=== PATIENT | female | born 1945 | race Caucasian/White ===

== ENCOUNTER 2022-06-04 09:14 | Emergency (ER) | payer MEDICARE, SELFPAY ==
--- NOTE | ~2022-06-04 | CT_ITS ---
EXAMINATION: CT ABDOMEN AND PELVIS WITHOUT CONTRAST CLINICAL INFORMATION: Renal stone COMPARISON: None TECHNIQUE: Multidetector volumetric imaging was performed from the superior aspect of the liver through the pubic symphysis. Sagittal and coronal reformatted images were obtained on the technologist's workstation. This CT examination was performed using dose optimization techniques as appropriate, variously including the following: *Automated exposure control *Adjustment of mA and/or kV according to patient size (this includes techniques or standardized protocols for targeted exams where dose is matched to indication/reason for exam; i.e. extremities or head) *Use of iterative reconstruction technique DLP: 1054 mGy-cm FINDINGS: LUNG BASES: The visualized lung bases are unremarkable. LIVER, GALLBLADDER, AND BILIARY TREE: Liver is of low attenuation due to hepatic steatosis and enlarged with right lobe attenuation measured 24HU. There are no intrahepatic masses or ductal dilatation. The gallbladder is unremarkable with no evidence of radiopaque gallstones, gallbladder wall thickening, or obvious pericholecystic inflammatory changes. PANCREAS: Unremarkable. SPLEEN: Unremarkable. ADRENAL GLANDS: Unremarkable. KIDNEYS AND URETERS: No evidence of nephrolithiasis or hydroureteronephrosis. Left kidney revealed mildly lobulated contour most likely due to small cortical cyst in the lower pole but no masses or obvious cysts visualized. Right kidney revealed no mass is hydronephrosis or stones and there is mildly lobulated contour. BLADDER: There is nonobstructing conglomerate of stones measured 0.5 cm at left the UVJ GASTROINTESTINAL TRACT: The small and large bowel are unremarkable. The appendix is unremarkable. ABDOMINAL WALL: No significant hernia is appreciated. LYMPH NODES: Normal. VASCULAR: Unremarkable. PELVIC VISCERA: Unremarkable. OSSEOUS STRUCTURES: There are mild degenerative changes in lumbar spine CT/CT abdomen pelvis wo con IMPRESSION: Nonobstructing calculus in the left UVJ. Hepatic steatosis and hepatomegaly Fleischner guidelines were followed.
[2022-06-04 09:42] VITALS: BP 156/85; PULSE 111; RESP 18; O2SAT 97; BMI 44.0
[2022-06-04 09:45] VITALS: TEMP 36.6
[2022-06-04 09:59] LABS: Appearance Urine CLEAR; Color Urine YELLOW; Glucose Urine UA NEG (NEG); Leukocyte Esterase Urine 1+ (NEG); Nitrite Urine NEG (NEG); PH 5.5 (5.0-8.0); UACC Culture Trigger YES; Urine Blood TRACE (NEG); Urine Ketones 5 MG/DL (NEG); Urine Protein NEG (NEG-TRACE)
[2022-06-04 10:33] VITALS: BP 138/70; PULSE 100; RESP 20; O2SAT 97
[2022-06-04 10:45] LABS: Bacteria Urine TRACE /LPF; RBC Urine 0-2 /HPF (0); Squamous Epithelial Cell Urine 3+ /LPF
--- NOTE | 2022-06-04 10:47 | ED_ITS ---
HPI - Female Genitourinary General Chief complaint: Urogenital-Female Stated complaint: uti, burning when urinating Time Seen by Provider: 06/04/22 10:19 Source: patient Mode of arrival: ambulatory Limitations: no limitations History of Present Illness HPI Narrative: This is a 77 years old female presented to the emergency department complaining of dysuria burning during urination she is concerned she may have another urinary tract infection, she just finished a course of antibiotics MD elicited complaint: dysuria Onset (ago): week(s) (2) Severity: moderate Female Urogenital Radiation: Non-Radiating Consistency: constant Vaginal discharge: none Associated symptoms: denies other symptoms Related Data Previous Rx's Medication Instructions Recorded phenazopyridine 100 mg tablet 200 mg PO TID 6 doses #6 tabs 06/04/22 (Pyridium) tamsulosin 0.4 mg capsule (Flomax) 0.4 mg PO BEDTIME #10 caps 06/04/22 Allergies Allergy/AdvReac Type Severity Reaction Status Date / Time Unable to Assess Allergy Unverified 06/04/22 10:44 Review of Systems Review of Systems: Yes all other systems are reviewed and are negative Respiratory: Respiratory: Reports no additional respiratory complaints Gastrointestinal: Gastrointestinal: Reports no additional gastrointestinal complaints Genitourinary: Genitourinary: Reports dysuria PMFSH Social History Social History Advance Directives: Yes Advance Directives Information Provided: No Advance Directives on File: No Physical Exam Vital Signs: Vital Signs: Last Vital Signs Temp 97.9 F 06/04/22 09:45 Pulse 104 H 06/04/22 12:06 Resp 18 06/04/22 12:06 BP 148/86 H 06/04/22 12:06 Pulse Ox 97 06/04/22 12:06 O2 Del Method 06/04/22 12:06 BMI result Body Mass Index 44.0 Const: General: cooperative, healthy appearing and comfortable Nutritional Appearance: well nourished Orientation/consciousness: patient oriented x3 Limitations: no limitations HEENT: Head: Yes normal to inspection General nose exam: Normal external nose present Face and sinus: Yes normal facial exam Mouth: Normal oral and palatal mucosa present Throat: Yes posterior oropharynx normal Neck: Neck: Yes normal visual inspection and Yes full ROM Lymphatic: no lymphadenopathy noted Chest: Chest palpation & inspection: normal inspection of the chest Resp: Effort & Inspection: normal respiratory effort Auscultation: clear to auscultation bilaterally Cardio: Jugular venous distension: no JVD Rate: regular rate Rhythm: regular rhythm GI: Inspection: Yes normal to inspection Palpation (GI): Soft to palpation, not firm, nontender and no guarding Skin: General skin exam: no rashes or lesions noted Lesions: no lesions Rashes: no rashes Neuro: General: patient oriented x3 Cranial nerves: Yes CN's II-XII intact bilaterally Course Reevaluation(s) Reevaluation #1: CT scan of the abdomen and pelvis shows stones in the bladder in the left UVJ without obstruction. We have a clear diagnosis now, patient does have a urologist I will discharge on Flomax, Pyridium for the discomfort I will avoid any narcotic because age MDM - Female Genitourinary Lab Data Result diagrams: 06/04/22 11:13 06/04/22 11:13 Labs: Lab Results 06/04/22 06/04/22 06/04/22 Range/Units 09:53 11:13 11:13 WBC 7.3 (4.8-10.8) X10*3/uL RBC 4.92 (4.20-5.50) X10*6/uL Hgb 12.4 (12.0-16.0) g/dl Hct 39.8 (37.0-47.0) % MCV 80.9 (80.0-98.0) fL MCH 25.2 L (27.0-33.0) pg MCHC 31.2 (31.0-35.0) g/dl RDW 14.6 (11.0-16.0) % Plt Count 284 (160-400) X10*3/uL MPV 9.2 L (9.4-12.3) fL Immature Gran % (Auto) 0.3 (0.0-0.4) % Neut % (Auto) 56.4 (45-73) % Lymph % (Auto) 31.9 (20-40) % [place] % (Auto) 7.8 (2-11) % Eos % (Auto) 2.2 (0-4) % Baso % (Auto) 1.4 (0-2) % Lymph # (Auto) 2.3 (1.2-4.9) X10*3/uL [place] # (Auto) 0.6 (0.1-1.2) X10*3/uL Eos # (Auto) 0.2 (0.0-0.4) X10*3/uL Baso # (Auto) 0.1 (0.0-0.2) X10*3/uL Abs Immat Gran (auto) 0.02 (0.00-0.03) X10*3/uL Absolute Neuts (auto) 4.1 (2.0-8.3) x10*3/uL Absolute Nucleated RBC 0.000 (0.0-0.012) X10*3/uL Nucleated RBC % (auto) 0.0 (0.0-0.2) /100WBC Sodium 140 (135-145) mmol/L Potassium 3.8 (3.3-5.1) mmol/L Chloride 105 (96-108) mmol/L Carbon Dioxide 25 (22-29) mmol/L Anion Gap 14 (12-20) BUN 18 H (9-16) mg/dL Creatinine 0.81 (0.5-1.4) mg/dL Estim Creat Clear Calc 75.7 Estimated GFR > 60 Random Glucose 144 H (60-115) mg/dL Calcium 9.7 (8.4-10.2) mg/dL Total Bilirubin 0.3 (0.0-1.0) mg/dL AST 20 (5-31) U/L ALT 19 (0-31) U/L Alkaline Phosphatase 76 (39-117) U/L Total Protein 7.5 (6.5-8.0) g/dL Albumin 4.6 (3.5-5.0) g/dL Urine Color YELLOW Urine Appearance CLEAR Urine pH 5.5 (5.0-8.0) Ur Specific [place] 1.020 (1.005-1.025) Urine Protein NEG (NEG-TRACE) MG/DL Urine Glucose (UA) NEG (NEG) MG/DL Urine Ketones 5 (NEG) MG/DL Urine Blood TRACE (NEG) Urine Nitrite NEG (NEG) Ur Leukocyte Esterase 1+ H (NEG) Urine RBC 0-2 (0) /HPF Urine WBC 1-4 (0-4) /HPF Ur Squamous Epith Cells 3+ /LPF Urine Bacteria TRACE /LPF Imaging Data CT scan - abdomen: Radiologist's impression: BLADDER: There is nonobstructing conglomerate of stones measured 0.5 cm at left the UVJ? GASTROINTESTINAL TRACT: The small and large bowel are unremarkable. The appendix is unremarkable.? ABDOMINAL WALL: No significant hernia is appreciated.? LYMPH NODES: Normal. VASCULAR: Unremarkable. PELVIC VISCERA: Unremarkable.? OSSEOUS STRUCTURES: There are mild degenerative changes in lumbar spine ? CT/CT abdomen pelvis wo con IMPRESSION: Nonobstructing calculus in the left UVJ. Hepatic steatosis and hepatomegaly? ? Fleischner guidelines were followed. Dictated By: Alison Dupont MD Signed By: <Electronically signed by Alison Dupont MD in [place]> 06/04/22 1147 Discharge Plan Discharge Clinical Impression: Bladder calculi Patient Disposition: Home, Self-Care Instructions: Bladder Stones (ED) Additional Instructions: Follow-up with your primary care physician and urologist, return if you worse. Prescriptions: New tamsulosin [Flomax] 0.4 mg capsule 0.4 mg PO BEDTIME Qty: 10 0RF phenazopyridine [Pyridium] 100 mg tablet 200 mg PO TID Qty: 6 0RF Referrals: Speedy Galan MD [Primary Care Provider] - 2 days
[2022-06-04 11:15] LABS: MANUAL DIFF FLAG NO
[2022-06-04 11:17] LABS: Basophils Absolute Auto 0.1 X10*3/uL (0.0-0.2); Basophils Percent Auto 1.4 % (0-2); Eosinophils Absolute Auto 0.2 X10*3/uL (0.0-0.4); Eosinophils Percent Auto 2.2 % (0-4); Hematocrit 39.8 % (37.0-47.0); Hemoglobin 12.4 g/dl (12.0-16.0); Imm Gran Abs Auto 0.02 X10*3/uL (0.00-0.03); Imm Gran Pct Auto 0.3 % (0.0-0.4); Lymphocytes Absolute Auto 2.3 X10*3/uL (1.2-4.9); Lymphocytes Percent Auto 31.9 % (20-40); Mean Corpuscular HGB Conc 31.2 g/dl (31.0-35.0); Mean Corpuscular Hemoglobin 25.2 pg (27.0-33.0); Mean Corpuscular Volume 80.9 fL (80.0-98.0); Mean Platelet Volume 9.2 fL (9.4-12.3); Monocytes Absolute Auto 0.6 X10*3/uL (0.1-1.2); Monocytes Percent Auto 7.8 % (2-11); Neutrophils Absolute Auto 4.1 x10*3/uL (2.0-8.3); Neutrophils Percent Auto 56.4 % (45-73); Platelet Count 284 X10*3/uL (160-400); Red Blood Count 4.92 X10*6/uL (4.20-5.50); Red Cell Distribution Width 14.6 % (11.0-16.0); White Blood Count 7.3 X10*3/uL (4.8-10.8)
[2022-06-04 11:37] LABS: Alanine Aminotransferase 19 U/L (0-31); Albumin Level 4.6 g/dL (3.5-5.0); Alkaline Phosphatase 76 U/L (39-117); Anion Gap 14 (12-20); Aspartate Amino Transferase 20 U/L (5-31); Bilirubin Total 0.3 mg/dL (0.0-1.0); Blood Urea Nitrogen 18 mg/dL (9-16); Calcium 9.7 mg/dL (8.4-10.2); Carbon Dioxide 25 mmol/L (22-29); Chloride 105 mmol/L (96-108); Creatinine Clr Calc Pharmacy 75.7; Estimated Glomerular Filt Rate > 60; Glucose Random 144 mg/dL (60-115); Potassium 3.8 mmol/L (3.3-5.1); Sodium 140 mmol/L (135-145); Total Protein 7.5 g/dL (6.5-8.0)
[2022-06-04 12:06] VITALS: BP 148/86; PULSE 104; RESP 18; O2SAT 97
== END 2022-06-04 12:38 | disposition home or self-care (01) ==
PROVIDERS: Emergency Provider Emergency Medicine; PCP Internal Medicine
DX: N20.1 Calculus of ureter (principal); R30.0 Dysuria; Z79.899 Other long term (current) drug therapy
CPT/HCPCS: 36415; 74176; 80053; 81001; 81003; 85025; 87086; 99283

== ENCOUNTER 2022-12-25 10:17 | Emergency (ER) | payer MEDICARE, SELFPAY ==
--- NOTE | ~2022-12-25 | XR_ITS ---
EXAMINATION: XR LUMBOSACRAL SPINE CLINICAL INFORMATION: Pain. COMPARISON: None. TECHNIQUE: 3 views of the lumbosacral spine. FINDINGS: Grade 1 anterolisthesis of L4 on L5 measures 4 mm. There is marked facet arthropathy in the lower lumbar spine at L4-5 and L5-S1. Multilevel degenerative disc disease is characterized by loss of vertebral disc height, endplate osteophytes, and endplate sclerosis, most notable at L2-L3 and L5-S1. Minimal right convex curvature in the lumbar spine. Vertebral body heights are normal. No osseous lesions are identified. There is moderate osteoarthritis in the SI joints. More mild osteoarthritis is present in the hips. Calcific atherosclerosis is present in the abdominal aorta and iliac arteries. XR/XR lumbar spine 2-3V IMPRESSION: 1. Marked facet arthropathy in the lower lumbar spine with grade 1 anterolisthesis of L4 on L5. 2. [id number] multilevel degenerative disc disease. 3. 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
[2022-12-25 10:47] VITALS: BP 152/83; PULSE 103; RESP 18; TEMP 36.6; O2SAT 98; BMI 42.3
[2022-12-25 11:23] VITALS: BP 145/95; PULSE 98; RESP 16; TEMP 36.7; O2SAT 97
--- NOTE | 2022-12-25 11:38 | ED.GENADULT ---
HPI - General Adult General Chief complaint: Back Pain/Injury Stated complaint: back pain Time Seen by Provider: 12/25/22 11:20 Source: patient, RN notes reviewed and other Mode of arrival: ambulatory (with walker) Limitations: no limitations History of Present Illness HPI narrative: 77-year-old female with past medical history significant for chronic back pain spinal stenosis who presents for evaluation of back pain. Patient reports worsening back pain over the last 3 days. She denies any specific injury, heavy lifting, twisting or turning or any falls. Her pain is at worst 10/10. Issues across her lower back does not show into her legs. She denies any numbness, tingling, weakness. She has been taking Tylenol at home with some relief of her symptoms Denies any history of spinal surgeries denies any bladder or bowel incontinence Related Data Previous Rx's Medication Instructions Recorded phenazopyridine 100 mg tablet 200 mg PO TID 6 doses #6 tabs 06/04/22 (Pyridium) tamsulosin 0.4 mg capsule (Flomax) 0.4 mg PO BEDTIME #10 caps 06/04/22 baclofen 5 mg tablet 5 mg PO TID PRN ms #15 tabs 12/25/22 lidocaine 5 % topical patch 1 patch topical DAILY #5 ea 12/25/22 (Lidoderm) Allergies Allergy/AdvReac Type Severity Reaction Status Date / Time Unable to Assess Allergy Unverified 06/04/22 10:44 Review of Systems Constitutional: Constitutional: Reports as per HPI, Denies chills and Denies fatigue ENT: Denies neck pain Cardiovascular: Cardiovascular: Denies chest pain and Denies dyspnea Respiratory: Respiratory: Denies cough and Denies dyspnea Gastrointestinal: Gastrointestinal: Denies abdominal pain, Denies constipation and Denies vomiting Genitourinary: Genitourinary: Denies dysuria Musculoskeletal: Musculoskeletal: Reports as per HPI, Reports abnormal gait, Reports back pain, Denies neck pain, Denies numbness, Denies radiating pain into limb, Reports stiffness and Denies tingling Neurologic: Reports abnormal gait, Denies numbness and Denies tingling Endocrine: Endocrine: Denies fatigue [facility] Social History Social History Alcohol intake: never Smoked in Last 30 Days: No Use of substances other than those prescribed or required for medical reasons: No Advance Directives: Yes Advance Directives Information Provided: No Advance Directives on File: No Physical Exam ED Vital Signs: Vital Signs - 24 hr 12/25/22 10:47 12/25/22 11:23 12/25/22 13:03 Temperature 97.9 F 98.0 F 97.2 F Pulse Rate 103 H 98 93 Respiratory Rate 18 16 16 Blood Pressure 152/83 H 145/95 H 148/72 H Pulse Oximetry 98 97 95 Oxygen Delivery Method Room Air Room Air Room Air BMI result Body Mass Index 42.3 Const General: healthy appearing, comfortable, no acute distress, alert and awake Nutritional Appearance: well nourished Orientation/consciousness: patient oriented x3 Eyes Eyelids: Yes eyelids normal Conjunctivae: conjunctivae normal Sclerae: sclerae normal Corneas: corneas normal Pupils: Equal, round and reactive pupils present EOM: EOMs intact bilaterally Resp Effort & Inspection: normal respiratory effort, able to speak in complete sentences, no audible wheezes and not labored Back/Spine/Pelvis Other: No obvious visual deformity, no overlying skin changes or rashes. The patient is tender palpation across the lumbar region with no focal vertebral tenderness. No step-offs or deformities. Negative straight leg raise. Thoracic/Lumbar Spine: No straight leg raise positive Skin General skin exam: no rashes or lesions noted and elasticity normal Lesions: no lesions Rashes: no rashes Neuro General: patient oriented x3 Cranial nerves: Yes Equal, round and reactive pupils present Motor exam (neuro): 5/5 motor strength present throughout Extrem General: Yes full ROM Course Reevaluation(s) Reevaluation #1: Discussed imaging results with the patient. She remains on a reassuring neurologic exam. No one insert for clinical consumption. Will discharge patient with lidocaine patches and baclofen. She will follow up with PCP Time: 13:31 Medical Decision Making Medical Decision Making MDM Narrative: This is a 77-year-old female with past medical history significant for spinal stenosis complaining of acute on chronic back pain. She denies any specific injury to the area. Denies any numbness, tingling, weakness, bladder or bowel incontinence. No fevers or chills. Most likely to be clinically in a/epidural abscess. Most likely musculoskeletal in origin addendum lumbar strain or ulcerations/spinal stenosis. Obtain plain film x-ray of the lumbar spine to evaluate for compression fracture. Differential Diagnosis Differential Diagnoses: The differential diagnosis associated with the presentation includes (Spinal stenosis, lumbar strain, compression fractures, vertebral fracture) Spinal stenosis Radiology Impression Discussion of test interpretation with radiology: I have reviewed the radiologist's reading. Discharge Plan Discharge Clinical Impression: Spinal stenosis Patient Disposition: Home, Self-Care Instructions: Lumbar Spinal Stenosis (ED) Additional Instructions: You may use baclofen up to 3 times daily as needed for muscle spasms. The remaining sleeping, denied drinking alcohol or drive taking a day Apply lidocaine patches to the area once daily. Follow-up with your primary doctor for your spinal stenosis. You may also take Tylenol or ibuprofen for any further discomfort Prescriptions: New lidocaine [Lidoderm] 5 % adhesive patch,medicated 1 patch topical DAILY Qty: 5 0RF Rx Instructions: leave on most painful area for up to 12 hrs baclofen 5 mg tablet 5 mg PO TID PRN (Reason: ms) Qty: 15 0RF No Action tamsulosin [Flomax] 0.4 mg capsule 0.4 mg PO BEDTIME Qty: 10 0RF phenazopyridine [Pyridium] 100 mg tablet 200 mg PO TID Qty: 6 0RF
[2022-12-25 13:03] VITALS: BP 148/72; PULSE 93; RESP 16; TEMP 36.2; O2SAT 95
== END 2022-12-25 14:00 | disposition home or self-care (01) ==
PROVIDERS: Emergency Provider Emergency Medicine; PCP Internal Medicine
DX: M48.061 Spinal stenosis, lumbar region without neurogenic claudication (principal); M54.50 Low back pain, unspecified
CPT/HCPCS: 72100; 99283; 99284

== ENCOUNTER 2022-12-28 10:05 | Emergency (ER) | payer MEDICARE, SELFPAY ==
[2022-12-28 10:09] VITALS: BP 142/73; PULSE 100; RESP 19; TEMP 36.6; O2SAT 98; BMI 43.5
--- NOTE | 2022-12-28 11:24 | ED_ITS ---
HPI - Back Pain/Injury General Chief Complaint: Back Pain/Injury <GEORGETTE Sue Last Filed: 12/28/22 12:39> Stated Complaint: sharp back pain going into hips <GEORGETTE Sue Last Filed: 12/28/22 12:39> Time Seen by Provider: 12/28/22 11:22 <GEORGETTE Sue Last Filed: 12/28/22 12:39> Source: patient <GEORGETTE Sue Last Filed: 12/28/22 12:39> Mode of arrival: ambulatory <GEORGETTE Sue Last Filed: 12/28/22 12:39> History of Present Illness HPI Narrative: 77-year-old female with a past medical history of chronic back pain, spinal stenosis, presenting to the ED complaining of acute on chronic low back pain x5 days. Patient was seen and treated in our ED on Sunday for similar symptoms prescribed Baclofen and Lidoderm patches without relief. Denies known injury, trauma, fall, radiation of pain down lower extremities, numbness, tingling, weakness, urinary incontinence/retention. <GEORGETTE Sue Last Filed: 12/28/22 12:39> MD elicited complaint: back pain <GEORGETTE Sue Last Filed: 12/28/22 12:39> Related Data Home Medications: Previous Rx's Medication Instructions Recorded phenazopyridine 100 mg tablet 200 mg PO TID 6 doses #6 tabs 06/04/22 (Pyridium) tamsulosin 0.4 mg capsule (Flomax) 0.4 mg PO BEDTIME #10 caps 06/04/22 baclofen 5 mg tablet 5 mg PO TID PRN ms #15 tabs 12/25/22 lidocaine 5 % topical patch 1 patch topical DAILY #5 ea 12/25/22 (Lidoderm) acetaminophen 500 mg tablet 500 mg PO Q6H PRN fever or pain 12/28/22 (Tylenol Extra Strength) #14 tabs naproxen 500 mg tablet 500 mg PO BID PRN pain 10 days #20 12/28/22 tabs prednisone 20 mg tablet 40 mg PO DAILY 5 days #10 tabs 12/28/22 <GEORGETTE Sue Last Filed: 12/28/22 12:39> Allergies/Adverse Reactions: Allergies Allergy/AdvReac Type Severity Reaction Status Date / Time iodine Allergy Hives Verified 12/28/22 10:09 tramadol Allergy Numbness Verified 12/28/22 10:09 <GEORGETTE Sue - Last Filed: 12/28/22 12:39> Review of Systems Review of Systems: Constitutional: No Fever, No Chills ENT/Mouth: No Ear Pain, No Nasal Congestion, No sore throat, No Rhinorrhea, No Swallowing Difficulty Cardiovascular: No Chest Pain, No SOB Respiratory: No Cough, No Sputum Gastrointestinal: No Nausea, No Vomiting, No Abdominal pain Genitourinary: No Dysuria,No Hematuria, No Urinary Incontinence/retention,No Flank Pain Musculoskeletal: + joint pain, No Myalgias, No Joint Swelling Skin: No Skin Lesions, No rash Neuro: No Weakness, No Numbness, No Paresthesias <GEORGETTE Sue - Last Filed: 12/28/22 12:39> Yes all other systems are reviewed and are negative <GEORGETTE Sue - Last Filed: 12/28/22 12:39> Constitutional: Constitutional: Reports as per HPI <GEORGETTE Sue - Last Filed: 12/28/22 12:39> Neurologic: Denies Sensory deficit (Neuro) <GEORGETTE Sue - Last Filed: 12/28/22 12:39> [facility] Past Medical History Attestation statement: The following information was validated with the patient. <GEORGETTE Sue - Last Filed: 12/28/22 12:39> Social History Social History: Social History Alcohol intake: never Advance Directives: No <GEORGETTE Sue Last Filed: 12/28/22 12:39> Physical Exam Vital Signs: Vital Signs: Last Vital Signs Temp 98 F 12/28/22 10:09 Pulse 100 12/28/22 10:09 Resp 19 12/28/22 10:09 BP 142/73 H 12/28/22 10:09 Pulse Ox 98 12/28/22 10:09 O2 Del Method 12/28/22 10:09 BMI result Body Mass Index 43.5 <GEORGETTE Sue Last Filed: 12/28/22 12:39> Vital Signs: Last Vital Signs Temp 98 F 12/28/22 10:09 Pulse 100 12/28/22 10:09 Resp 19 12/28/22 10:09 BP 142/73 H 12/28/22 10:09 Pulse Ox 98 12/28/22 10:09 O2 Del Method 12/28/22 10:09 BMI result Body Mass Index 43.5 <Pablo Virgen MD - Last Filed: 01/04/23 16:26> Const: General: cooperative, healthy appearing and no acute distress <GEORGETTE Sue - Last Filed: 12/28/22 12:39> Orientation/consciousness: patient oriented x3 <GEORGETTE Sue - Last Filed: 12/28/22 12:39> Limitations: no limitations <GEORGETTE Sue - Last Filed: 12/28/22 12:39> HEENT: Head: Yes normal to inspection and Yes atraumatic <GEORGETTE Sue - Last Filed: 12/28/22 12:39> Ears: hearing grossly normal bilaterally <GEORGETTE Sue - Last Filed: 12/28/22 12:39> General nose exam: Normal external nose present <GEORGETTE Sue - Last Filed: 12/28/22 12:39> Face and sinus: Yes normal facial exam <GEORGETTE Sue - Last Filed: 12/28/22 12:39> Eyes: General: appearance normal, both eyes and all related structures <GEORGETTE Sue - Last Filed: 12/28/22 12:39> EOM: EOMs intact bilaterally <GEORGETTE Sue - Last Filed: 12/28/22 12:39> Neck: Other: No midline cervical spinous tenderness <GEORGETTE Sue - Last Filed: 12/28/22 12:39> Neck: Yes normal visual inspection and Yes no meningeal signs <GEORGETTE Sue - Last Filed: 12/28/22 12:39> Resp: Effort & Inspection: normal respiratory effort and no respiratory distress <GEORGETTE Sue - Last Filed: 12/28/22 12:39> Cardio: Rate: regular rate <Rachel Jiménez PA - Last Filed: 12/28/22 12:39> GI: Inspection: Yes normal to inspection <Rachel Jiménez PA - Last Filed: 12/28/22 12:39> Palpation (GI): Soft to palpation, nontender, no guarding and not rigid <Rachel Jiménez PA - Last Filed: 12/28/22 12:39> : General: Yes no CVA tenderness <Rachel Jiménez PA - Last Filed: 12/28/22 12:39> Back/Spine/Pelvis: Other: No midline thoracic/lumbar spinous tenderness/step-off or deformity. Pain not reproducible on exam <Rachel Jiménez PA - Last Filed: 12/28/22 12:39> Back: no CVA tenderness <Rachel Jiménez PA - Last Filed: 12/28/22 12:39> Skin: Rashes: no rashes <Rachel Jiménez PA - Last Filed: 12/28/22 12:39> Wounds: no wounds <Rachel Jiménez PA - Last Filed: 12/28/22 12:39> Neuro: Other: Strength intact throughout. No saddle anesthesia. Sensation intact to light touch. Neurovascular intact distally. Ambulating with steady gait <Rachel Jiménez PA - Last Filed: 12/28/22 12:39> General: patient oriented x3, gait normal, tone normal, moves all extremities, no meningeal signs and no focal motor deficits <Rachel Jiménez PA - Last Filed: 12/28/22 12:39> Gait exam (Neuro): Normal gait present <Rachel Jiménez PA - Last Filed: 12/28/22 12:39> Motor exam (neuro): 5/5 motor strength present throughout <Rachel Jiménez PA - Last Filed: 12/28/22 12:39> Sensory Exam: No Sensory deficit (Neuro) <Rachel Jiménez PA - Last Filed: 12/28/22 12:39> Extrem: General: Yes normal to inspection <Rachel Jiménez PA - Last Filed: 12/28/22 12:39> Course Course Course Narrative: Patient given IM Toradol and p.o. Valium in the ED. Ambulating with steady gait, sitting in chair in room, reports symptomatic improvement Results discussed with patient including worrisome signs and symptoms and strict return precautions, and when to return to the emergency department. They verbalized understanding and feel safe for discharge at this time. <GEORGETTE Sue - Last Filed: 12/28/22 12:39> Medications Administered Discontinued Medications Generic Name Dose Route Start Last Admin Trade Name Freq PRN Reason Stop Dose Admin Diazepam 5 mg 12/28/22 11:44 12/28/22 12:02 Diazepam 2 Mg Tablet PO 12/28/22 11:45 5 mg ONCE ONE Administration Ketorolac Tromethamine 30 mg 12/28/22 11:44 12/28/22 12:02 Ketorolac Tromethamine 30 Mg/Ml Vial IM 12/28/22 11:45 30 mg ONCE ONE Administration <GEORGETTE Sue - Last Filed: 12/28/22 12:39> Medications Administered Discontinued Medications Generic Name Dose Route Start Last Admin Trade Name Freq PRN Reason Stop Dose Admin Diazepam 5 mg 12/28/22 11:44 12/28/22 12:02 Diazepam 2 Mg Tablet PO 12/28/22 11:45 5 mg ONCE ONE Administration Ketorolac Tromethamine 30 mg 12/28/22 11:44 12/28/22 12:02 Ketorolac Tromethamine 30 Mg/Ml Vial IM 12/28/22 11:45 30 mg ONCE ONE Administration <Pablo Virgen MD - Last Filed: 01/04/23 16:26> Medical Decision Making Medical Decision Making MDM Narrative: 77-year-old female with a past medical history of chronic back pain, s christian stenosis, presenting to the ED complaining of acute on chronic low back pain x5 days. On exam vital signs stable, NAD, nontoxic appearing, no midline spinous tenderness throughout or red flag symptoms, ambulating in the ED with steady gait. Pain not reproducible on exam. Concern for acute on chronic back pain/osteoarthritis. Low suspicion for cauda equina, cord compression, fracture, epidural abscess Plan: IM Toradol, p.o. Valium, reassess X-rays reviewed from 12/25/2022 which showed arthropathy and degenerative disc disease/osteoarthritis Please refer to course for remaining clinical decision making, interpretation of labs/imaging results, and discussions with consultants and/or family members. <GEORGETTE Sue - Last Filed: 12/28/22 12:39> Differential Diagnosis Differential Diagnoses: The differential diagnosis associated with the presentation includes <GEORGETTE Sue - Last Filed: 12/28/22 12:39> as above <GEORGETTE Sue - Last Filed: 12/28/22 12:39> Radiology Impression Discussion of test interpretation with radiology: I have reviewed the radiologist's reading. <GEORGETTE Sue - Last Filed: 12/28/22 12:39> External Record Review Prior ED record <GEORGETTE Sue - Last Filed: 12/28/22 12:39> Prescription Management I considered prescription management with: Pain Medication <GEORGETTE Sue - Last Filed: 12/28/22 12:39> Attestation Attending Attestation: I reviewed CREDIT VERIFICATION CLERK/PA/Resident note, assessment and plan. I agree with the documentation, assessment and plan unless otherwise stated. <Pablo Virgen MD - Last Filed: 01/04/23 16:26> Discharge Plan Discharge Clinical Impression: Chronic back pain <GEORGETTE Sue - Last Filed: 12/28/22 12:39> Patient Disposition: Home, Self-Care <GEORGETTE Sue - Last Filed: 12/28/22 12:39> Instructions: Chronic Back Pain (DC) <GEORGETTE Sue - Last Filed: 12/28/22 12:39> Additional Instructions: Your pain is likely musculoskeletal Continue taking previously prescribed Baclofen which is a muscle relaxer, take at night as it makes you drowsy, do not drive, drink alcohol, or operate machinery while taking it Naproxen as an anti-inflammatory / pain medication, take with food Continue taking previously prescribed Lidoderm patches are numbing patches, apply to painful area In addition take Tylenol at home Prednisone is a steroid, take daily as prescribed for the next 5 days If symptoms persist or worsen, pain becomes unbearable, you developed urinary retention or incontinence, or weakness return to the ED Please follow-up with your doctor <GEORGETTE Sue - Last Filed: 12/28/22 12:39> Prescriptions: New acetaminophen [Tylenol Extra Strength] 500 mg tablet 500 mg PO Q6H PRN (Reason: fever or pain) Qty: 14 0RF naproxen 500 mg tablet 500 mg PO BID PRN (Reason: pain) 10 Days Qty: 20 0RF prednisone 20 mg tablet 40 mg PO DAILY 5 Days Qty: 10 0RF No Action tamsulosin [Flomax] 0.4 mg capsule 0.4 mg PO BEDTIME Qty: 10 0RF phenazopyridine [Pyridium] 100 mg tablet 200 mg PO TID Qty: 6 0RF lidocaine [Lidoderm] 5 % adhesive patch,medicated 1 patch topical DAILY Qty: 5 0RF Rx Instructions: leave on most painful area for up to 12 hrs baclofen 5 mg tablet 5 mg PO TID PRN (Reason: ms) Qty: 15 0RF <GEORGETTE Sue - Last Filed: 12/28/22 12:39> Referrals: Speedy Galan MD [Primary Care Provider] - 3 days <GEORGETTE Sue - Last Filed: 12/28/22 12:39> Interventions: ED Discharge Assessment Last Done: 12/28/22 12:43 <GEORGETTE Sue - Last Filed: 12/28/22 12:39> Discharge Date/Time: 12/28/22 12:45 <GEORGETTE Sue - Last Filed: 12/28/22 12:39>
[2022-12-28] MEDS: diazePAM 2 MG TABLET 5 MG PO (12:02)
[2022-12-28] MEDS: Ketorolac Tromethamine 30 MG/ML VIAL IM (12:02)
--- NOTE | 2022-12-28 12:44 | PC.NURSE ---
pt medicated per JAN- immediately following med administration, pt was able to get oob under own power and walk with her cane with steady pace and gait to bathroom.
== END 2022-12-28 12:45 | disposition home or self-care (01) ==
PROVIDERS: Emergency Provider Emergency Medicine; PCP Internal Medicine
DX: M54.50 Low back pain, unspecified (principal); Z79.899 Other long term (current) drug therapy
CPT/HCPCS: 96372; 99283; 99284; J1885

== ENCOUNTER → 2023-02-19 09:45 | Outpatient (BNVA) | payer MEDICARE, SELFPAY | PROVIDERS: PCP Internal Medicine; Visit Provider Anesthesiology | DX: M47.816 Spondylosis without myelopathy or radiculopathy, lumbar region (principal); M51.36 Other intervertebral disc degeneration, lumbar region; M43.16 Spondylolisthesis, lumbar region; G89.4 Chronic pain syndrome | CPT/HCPCS: 99202 ==

== ENCOUNTER 2023-04-17 05:47 | Outpatient (REF) | payer MEDICARE, SELFPAY ==
--- NOTE | ~2023-04-17 | FL_ITS ---
EXAMINATION: XR FLUOROSCOPY WITH IMAGES CLINICAL INFORMATION: Chronic pain syndrome. COMPARISON: None available. TECHNIQUE: Fluoroscopy Supervised By: Dr. Becerril. Fluoroscopy Time: 0.5 min. Cumulative Dose: 13.8 mGy. DAP: 0.239 Gycm2. Images: 6. FINDINGS: Images demonstrate needle placement and contrast injection adjacent to the bilateral lateral L3, L4 and L5 vertebral bodies. FL/FL guidance in treatment room IMPRESSION: Fluoroscopy guidance for pain management procedure.
== END 2023-04-17 05:48 | disposition home or self-care (01) ==
LOC: CF 05:47
PROVIDERS: Visit Provider Anesthesiology
DX: M47.816 Spondylosis without myelopathy or radiculopathy, lumbar region (principal); M51.36 Other intervertebral disc degeneration, lumbar region; G89.4 Chronic pain syndrome
CPT/HCPCS: 64493; 64494; J2795; Q9967

== ENCOUNTER → 2023-04-19 08:20 | Outpatient (BNVA) | payer MEDICARE, SELFPAY | PROVIDERS: PCP Internal Medicine; Visit Provider Anesthesiology | DX: M47.816 Spondylosis without myelopathy or radiculopathy, lumbar region (principal); M51.36 Other intervertebral disc degeneration, lumbar region; M43.16 Spondylolisthesis, lumbar region; G89.4 Chronic pain syndrome | CPT/HCPCS: 99212 ==

== ENCOUNTER 2023-06-27 09:18 | Outpatient (AMB) | payer MEDICARE, SELFPAY ==
--- NOTE | 2023-06-27 09:28 | AM.OFFWIN_ITS ---
Intake Vital Signs 06/27/23 09:36 Weight 284 lb BP 128/72 Blood Pressure Location Rt brachial Position Sitting Pulse 111 H Pulse Source Pulse Oximeter Pulse Oximetry (%) 97 Oxygen Delivery Method Room Air Intake Visit Reasons: EP, Dizziness, weak Intake Note: Patient here because for the past couple of days she has been feeling dizzy, fatigued, feels weak. states she just feels off . Patient Tobacco Use Status: Former Tobacco user Allergies iodine Allergy (Verified 06/27/23 10:12) Hives tramadol Allergy (Verified 06/27/23 10:12) Numbness Medication List - Last Reconciled 06/27/23 by Jaden Meyer MD acetaminophen (Tylenol Extra Strength) 500 mg PO Q6H PRN estradiol 0.01%(0.1mg/gram) 1 g vaginal 3XW fluticasone propionate 50 mcg/actuation sprays intranasal gabapentin 300 mg PO DAILY levothyroxine 137 mcg PO DAILY metformin ER 1,000 mg PO BID metoprolol succinate ER 25 mg PO DAILY naproxen 500 mg PO BID PRN 10 days omeprazole 20 mg PO DAILY phenazopyridine (Pyridium) 200 mg (2 x 100 mg) PO TID 6 doses prednisone 40 mg (2 x 20 mg) PO DAILY 5 days rosuvastatin 40 mg PO DAILY tamsulosin (Flomax) 0.4 mg PO BEDTIME valsartan-hydrochlorothiazide 160-25 mg 1 tab PO DAILY Do you need a note to return to daycare/school/sports/work: No HPI EP, Dizziness, weak HPI Details 78-year-old female presents to the office for a sick visit. Patient is not been feeling well for the past few days. Reports symptoms of increased frequency of urination and feeling tired. She is also stressed as her has been hospitalized a few times in the last week. No nausea or vomiting. [facility] Social History Alcohol intake: never Patient Tobacco Use Status: Former Tobacco user Physical Exam Vital Signs: Last Vital Signs Pulse 111 H 06/27/23 09:36 BP 128/72 06/27/23 09:36 Pulse Ox 97 06/27/23 09:36 Oxygen Delivery Method Room Air 06/27/23 09:36 Const General: cooperative and healthy appearing Nutritional Appearance: well nourished Orientation/consciousness: patient oriented x3 Limitations: no limitations HEENT Head: Yes normal to inspection Eyes General: appearance normal, both eyes and all related structures Neck Neck: Yes normal visual inspection Chest Chest palpation & inspection: normal palpation of entire chest wall Resp Effort & Inspection: normal respiratory effort Neuro General: patient oriented x3 Results AMB Urinalysis, Automated UA Leukoctes 125 Reginald/uL Last Edit by Lisa Hill, ASHLYN on 06/27/23 10:09 UA Nitrite Positive Last Edit by Lisa Hill, ULTRASOUND SPECIALIST on 06/27/23 10:09 UA Urobilinogen 0.2 mg/dL Last Edit by Lisa Hill, ULTRASOUND SPECIALIST on 06/27/23 10:09 UA Protein 15 mg/dL Last Edit by Lisa Hill, ULTRASOUND SPECIALIST on 06/27/23 10:09 UA pH 6.0 Last Edit by Lisa Hill, ULTRASOUND SPECIALIST on 06/27/23 10:09 UA Blood 10 Williams/uL Last Edit by Lisa Hill, ULTRASOUND SPECIALIST on 06/27/23 10:09 UA Specific [place] 1 Last Edit by Lisa Hill, ULTRASOUND SPECIALIST on 06/27/23 10:09 UA Ketone Negative Last Edit by Lisa Hill, ULTRASOUND SPECIALIST on 06/27/23 10:09 UA Bilirubin 1 mg/dL Last Edit by Lisa Hill, ULTRASOUND SPECIALIST on 06/27/23 10:09 UA Glucose 0 mg/dL Last Edit by Lisa Hill, ULTRASOUND SPECIALIST on 06/27/23 10:09 Results Reviewed Results Reviewed: Laboratory Last Values Urine pH (Auto) 6.0 06/27/23 10:08 Specific [place] (Auto) 1 06/27/23 10:08 Urine Protein (Auto) 15 mg/dL 06/27/23 10:08 Glucose (UA)(Auto) 0 mg/dL 06/27/23 10:08 Urine Ketones (Auto) Negative 06/27/23 10:08 Urine Blood (Auto) 10 Williams/uL 06/27/23 10:08 Urine Nitrite (Auto) Positive 06/27/23 10:08 Urine Bilirubin (Auto) 1 mg/dL 06/27/23 10:08 Urine Urobilinogen (Auto) 0.2 mg/dL 06/27/23 10:08 Leukocyte Esterase (Auto) 125 Reginald/uL 06/27/23 10:08 Assessment & Plan Assessment & Plan (1) Urinary tract infection: Code(s): N39.0 - Urinary tract infection, site not specified Plan: Urinalysis positive for infection. Antibiotics called in. Increase fluid intake. If symptoms not better to follow-up here. Orders: Orders AMB Urinalysis Automated Today Z13.9 - Encounter for screening, unspecified Coding Level of Care Code Est Pt Level 3 (29308) Diagnoses Urinary tract infection N39.0
[2023-06-27 09:36] VITALS: BP 128/72; PULSE 111; O2SAT 97
== END 2023-06-27 10:52 | disposition home or self-care (01) ==
PROVIDERS: PCP Internal Medicine; Visit Provider Internal Medicine
DX: N39.0 Urinary tract infection, site not specified (principal); Z13.9 Encounter for screening, unspecified
CPT/HCPCS: 81003; 99213

== ENCOUNTER 2024-05-12 12:07 | Emergency (ER) | payer MEDICARE, SELFPAY ==
--- NOTE | ~2024-05-12 | XR_ITS ---
EXAMINATION: XR CHEST CLINICAL INFORMATION: Chest pain with dizziness COMPARISON: None available. TECHNIQUE: 2 views of the chest were obtained. FINDINGS: No significant abnormality is noted involving the heart, lungs, mediastinum, bony thorax or soft tissues. XR/XR chest 2V IMPRESSION: Unremarkable examination.
--- NOTE | 2024-05-12 12:21 | ECG_ITS ---
Test Reason : CHEST TIGHTNESS Blood Pressure : / mmHG Vent. Rate : 114 BPM Atrial Rate : 114 BPM P-R Int : 174 ms QRS Dur : 086 ms QT Int : 350 ms P-R-T Axes : 054 -16 044 degrees QTc Int : 482 ms Sinus tachycardia cannot exclude old Inferior infarct , age undetermined Abnormal ECG No previous ECGs available Referred By: Generic ED Physician Electronically Signed By:GISELL GUTIERREZ
--- NOTE | 2024-05-12 12:25 | ED_ITS ---
HPI - General Adult General Chief complaint: Dizziness Stated complaint: CHEST TIGHTNESS FROM PCP OFFICE PER EMS Time Seen by Provider: 05/12/24 12:24 Source: patient Mode of arrival: ambulatory Limitations: no limitations History of Present Illness HPI narrative: This is an 79-year-old woman with a past medical history of chronic back pain, spinal stenosis, bladder calculi, HTN, HLD, NIDDM, hypothyroidism who is BIBEMS for evaluation. Patient states she went to see her primary care doctor for her yearly check up. She states yesterday she was feeling well and that is was a normal day for her. She states waking up this morning and felt dizzy when she got up. She states no associated syncope. She states she also was sweaty . She states no recent fevers or chills. She states this sensation passed. She states also feeling achey in her chest and shoulders. She states no new neck or back pain. She states no vision changes or speech changes. She states no extremity weakness. She states no dyspnea or palpitations. She states no abdominal pain, nausea or vomiting. She states she previously had a urinary tract infection and states she does not feel like she has one becuase that has previously given her lower abdominal discomfort and dysuria. She states no dysuria, urinary frequency/urgency or flank pain. Related Data Home Medications ?Medication ?Instructions ?Recorded ?Confirmed estradiol 0.01% (0.1 mg/gram) 1 g vaginal 3XW 02/19/23 vaginal cream fluticasone propionate 50 spray intranasal 02/19/23 mcg/actuation nasal spray,suspension gabapentin 300 mg capsule 300 mg PO DAILY 02/19/23 levothyroxine 137 mcg tablet 137 mcg PO DAILY 02/19/23 metformin 500 mg tablet,extended 1,000 mg PO BID 02/19/23 release 24 hr metoprolol succinate 25 mg 25 mg PO DAILY 02/19/23 tablet,extended release 24 hr omeprazole 20 mg capsule,delayed 20 mg PO DAILY 02/19/23 release rosuvastatin 40 mg tablet 40 mg PO DAILY 02/19/23 valsartan 160 1 tab PO DAILY 02/19/23 mg-hydrochlorothiazide 25 mg tablet Previous Rx's ?Medication ?Instructions ?Recorded phenazopyridine 100 mg tablet 200 mg (2 x 100 mg) PO TID 6 doses 06/04/22 (Pyridium) #6 tabs tamsulosin 0.4 mg capsule (Flomax) 0.4 mg PO BEDTIME #10 caps 06/04/22 acetaminophen 500 mg tablet 500 mg PO Q6H PRN fever or pain 12/28/22 (Tylenol Extra Strength) #14 tabs naproxen 500 mg tablet 500 mg PO BID PRN pain 10 days #20 12/28/22 tabs prednisone 20 mg tablet 40 mg (2 x 20 mg) PO DAILY 5 days 12/28/22 #10 tabs phenazopyridine 200 mg tablet 200 mg PO TID 3 days #9 tabs 06/27/23 (Pyridium) sulfamethoxazole 800 1 tab PO BID 5 days #10 tabs 06/27/23 mg-trimethoprim 160 mg tablet (Bactrim DS) Allergies Allergy/AdvReac Type Severity Reaction Status Date / Time iodine Allergy Hives Verified 05/12/24 12:58 tramadol Allergy Numbness Verified 05/12/24 12:58 Review of Systems 2 Review of Systems: ROS as per [facility] Social History Social History Alcohol intake: never Patient Tobacco Use Status: Former Tobacco user Advance Directives: No Advance Directives Information Provided: Yes Do you have a plan to hurt others: No Plan Physical Exam ED Vital Signs: Vital Signs - 24 hr 05/12/24 12:30 05/12/24 13:06 05/12/24 13:07 Temperature 98.1 F Pulse Rate 110 H 107 H 117 H Respiratory Rate 22 H Blood Pressure 149/78 H 139/71 119/71 Pulse Oximetry 96 Oxygen Delivery Method Room Air 05/12/24 13:09 05/12/24 16:18 Temperature 97.9 F Pulse Rate 120 H 97 Respiratory Rate 16 Blood Pressure 113/66 141/77 H Pulse Oximetry 98 Oxygen Delivery Method Room Air BMI result Body Mass Index 44.8 Gen: NAD, AOx3 HEENT: NCAT, EOMI, normal conjunctiva, tacky oral mucosa CV: RRR, 2+ bilateral radial and DP/PT pulses Pulm: CTAB, no increased work of breathing GI: Soft, NTND, no rebound, guarding or rigidity MSK: No bilateral calf tenderness/edema/erythema Neuro: Grossly non focal, no nystagmus, ambulates independently Medications Administered Discontinued Medications Generic Name Dose Route Start Last Admin Trade Name Freq PRN Reason Stop Dose Admin Lactated Ringer's 1,000 mls @ 999 mls/hr 05/12/24 12:51 05/12/24 14:37 Lr IV 05/12/24 13:51 999 mls/hr .Q1H1M ONE Administration Medical Decision Making Medical Decision Making [facility] Narrative: Differential diagnosis includes, but is not limited to orthostasis, benign positional paroxysmal vertigo, dehydration, acute kidney injury, electrolyte derangement, acute coronary syndrome, viral syndrome. Patient is afebrile and hemodynamically stable on room air. She is tachycardic on arrival though this resolves prior to discharge. Exam is benign and reassuring. Patient's orthostatic vital signs are obtained and are positive with systolic blood pressure decrease from 139 mmHg to 119 mmHg, which is most likely etiology of her symptoms. I reviewed and interpreted labs, which are noncontributory. I reviewed and interpreted EKG, which is unremarkable for any acute findings. I reviewed and interpreted the patient's blood work, which are unremarkable for any acute findings. There is evidence of mild anemia with hemoglobin 11.5 (previous 12.4), mildly elevated BUN of 24 with no evidence of acute kidney injury given that creatinine is not increased greater than equal to 0.3 mg/dL since previous (1.01 today and previously 0.81), and minimally elevated calcium of 10.3 when compared to the upper limit of normal reference range 10.2. Troponin is negative. I reviewed and interpreted the patient's chest x-ray, which is unremarkable for any acute findings. Patient tests negative for COVID-19, Influenza and RSV. On reexamination, I discussed her reassuring blood work and EKG. She states she deve;oped symptoms of lightheadedness once again when she was taken down for her x-rays. I explained the significant of her orthostatic vital signs and plan for IV fluids. Bedside RN present at this time initiating 1L IV LR. On re-examination, patient is well-appearing and in no acute distress. ?Patient states symptoms have resolved. She ambulates independently.?I suspect patient's symptoms are most likely secondary to orthostasis given her history, exam and orthostatic vitals. There is no indication for further emergent evaluation in this otherwise well-appearing patient as above. ?Patient is provided written and verbal instructions, educational materials, recommendations for outpatient follow-up, strict return precautions and teach back is performed. ?Patient states understanding and agreement with plan of care. ?Patient is discharged home in stable and improved condition. Admission/Observation Consideration of admission/observation: Escalation of care including admission/observation considered Lab Data MDM Lab Attestation statement: I reviewed the patient's lab results. 05/12/24 13:12 05/12/24 13:12 Labs: Lab Results 05/12/24 05/12/24 Range/Units 13:12 13:27 WBC 6.5 (4.8-10.8) X10*3/uL RBC 4.80 (4.20-5.50) X10*6/uL Hgb 11.5 L (12.0-16.0) g/dl Hct 37.7 (37.0-47.0) % MCV 78.5 L (80.0-98.0) fL MCH 24.0 L (27.0-33.0) pg MCHC 30.5 L (31.0-35.0) g/dl RDW 16.7 H (11.0-16.0) % Plt Count 278 (160-400) X10*3/uL MPV 9.7 (9.4-12.3) fL Immature Gran % (Auto) 0.2 (0.0-0.4) % Neut % (Auto) 53.3 (45-73) % Lymph % (Auto) 33.8 (20-40) % [place] % (Auto) 9.0 (2-11) % Eos % (Auto) 2.3 (0-4) % Baso % (Auto) 1.4 (0-2) % Lymph # (Auto) 2.2 (1.2-4.9) X10*3/uL [place] # (Auto) 0.6 (0.1-1.2) X10*3/uL Eos # (Auto) 0.2 (0.0-0.4) X10*3/uL Baso # (Auto) 0.1 (0.0-0.2) X10*3/uL Abs Immat Gran (auto) 0.01 (0.00-0.03) X10*3/uL Absolute Neuts (auto) 3.5 (2.0-8.3) x10*3/uL Absolute Nucleated RBC 0.000 (0.0-0.012) X10*3/uL Nucleated RBC % (auto) 0.0 (0.0-0.2) /100WBC Sodium 145 (135-145) mmol/L Potassium 3.9 (3.3-5.1) mmol/L Chloride 105 (96-108) mmol/L Carbon Dioxide 28 (22-29) mmol/L Anion Gap 16 (12-20) BUN 24 H (9-16) mg/dL Creatinine 1.01 (0.5-1.4) mg/dL Estim Creat Clear Calc 59.2 Estimated GFR 53 POC Glucose 113 (60-115) mg/dL Random Glucose 108 (60-115) mg/dL Calcium 10.3 H D (8.4-10.2) mg/dL Troponin I High Sens < 2.7 (<3.5-17.0) ng/L Influenza Type A (PCR) NEGATIVE (Negative) Influenza Type B (PCR) NEGATIVE (Negative) RSV RNA Qual (PCR) NEGATIVE (Negative) SARS-CoV-2 RNA (RT-PCR) NEGATIVE (Negative) Independent Interpretation I performed an independent interpretation of an: EKG and Plain X-Ray Interpretation: EKG shows sinus tachycardia at 114 beats per minute, AK 174, QRS 86, QTC 482, no STEMI Chest x-ray is unremarkable for any pneumothorax, widened mediastinum or focal consolidation Radiology Impression Discussion of test interpretation with radiology: I have reviewed the radiologist's reading. Radiologist Impression: IMPRESSION: Unremarkable examination. Dictated By: Ulysses Purvis MD Signed By: <Electronically signed by Ulysses Purvis MD in OV> 05/12/24 1539 Discharge Plan Discharge Clinical Impression: Orthostasis Patient Disposition: Home, Self-Care Instructions: Dizziness (ED) Additional Instructions: You were seen and evaluated in the emergency room. Your vital signs were normal and you did not have fever. You were noted to have orthostatic vital signs, which means your blood pressure decreases when you change position (such as from laying down to sitting/standing or sitting to standing). Please discuss this with your primary care doctor. You were treated with IV fluids. Please take care to change position slowly and pause in between position changes (especially if you feel lightheaded). Your blood work, EKG and chest x-ray were reassuring though you were noted to have mild anemia with a hemoglobin of 11.5. Please discuss this with your primary care doctor. Please follow-up with your primary care doctor in the next 5-7 days to discuss your recent emergency room visit. Please return to the emergency room if you develop any worsening symptoms including, but not limited to lightheadedness, falls/injuries, loss of consciousness, chest pain or difficulty breathing. ? Prescriptions: No Action tamsulosin [Flomax] 0.4 mg capsule 0.4 mg PO BEDTIME Qty: 10 0RF phenazopyridine [Pyridium] 100 mg tablet 200 mg PO TID Qty: 6 0RF acetaminophen [Tylenol Extra Strength] 500 mg tablet 500 mg PO Q6H PRN (Reason: fever or pain) Qty: 14 0RF naproxen 500 mg tablet 500 mg PO BID PRN (Reason: pain) 10 Days Qty: 20 0RF prednisone 20 mg tablet 40 mg PO DAILY 5 Days Qty: 10 0RF sulfamethoxazole-trimethoprim [Bactrim DS] 800-160 mg tablet 1 tab PO BID 5 Days Qty: 10 0RF phenazopyridine [Pyridium] 200 mg tablet 200 mg PO TID 3 Days Qty: 9 0RF rosuvastatin 40 mg tablet 40 mg PO DAILY levothyroxine 137 mcg tablet 137 mcg PO DAILY metformin 500 mg tablet extended release 24 hr 1,000 mg PO BID metoprolol succinate 25 mg tablet extended release 24 hr 25 mg PO DAILY valsartan-hydrochlorothiazide 160-25 mg tablet 1 tab PO DAILY fluticasone propionate 50 mcg/actuation spray,suspension intranasal gabapentin 300 mg capsule 300 mg PO DAILY omeprazole 20 mg capsule,delayed release(DR/EC) 20 mg PO DAILY estradiol 0.01 % (0.1 mg/gram) cream 1 g vaginal 3XW Discharge Date/Time: 05/12/24 17:17 Print Language: Yoruba
[2024-05-12 12:28] VITALS: BP 148/82; PULSE 117; O2SAT 99
[2024-05-12 12:30] VITALS: BP 149/78; PULSE 110; RESP 22; TEMP 36.7; O2SAT 96
[2024-05-12 12:55] VITALS: BMI 44.8
[2024-05-12 13:06] VITALS: BP 139/71; PULSE 107
[2024-05-12 13:07] VITALS: BP 119/71; PULSE 117
[2024-05-12 13:09] VITALS: BP 113/66; PULSE 120
[2024-05-12 13:22] LABS: MANUAL DIFF FLAG NO
[2024-05-12 13:24] LABS: Basophils Absolute Auto 0.1 X10*3/uL (0.0-0.2); Basophils Percent Auto 1.4 % (0-2); Eosinophils Absolute Auto 0.2 X10*3/uL (0.0-0.4); Eosinophils Percent Auto 2.3 % (0-4); Hematocrit 37.7 % (37.0-47.0); Hemoglobin 11.5 g/dl (12.0-16.0); Imm Gran Abs Auto 0.01 X10*3/uL (0.00-0.03); Imm Gran Pct Auto 0.2 % (0.0-0.4); Lymphocytes Absolute Auto 2.2 X10*3/uL (1.2-4.9); Lymphocytes Percent Auto 33.8 % (20-40); Mean Corpuscular HGB Conc 30.5 g/dl (31.0-35.0); Mean Corpuscular Volume 78.5 fL (80.0-98.0); Mean Platelet Volume 9.7 fL (9.4-12.3); Monocytes Absolute Auto 0.6 X10*3/uL (0.1-1.2); Neutrophils Absolute Auto 3.5 x10*3/uL (2.0-8.3); Neutrophils Percent Auto 53.3 % (45-73); Platelet Count 278 X10*3/uL (160-400); Red Cell Distribution Width 16.7 % (11.0-16.0); White Blood Count 6.5 X10*3/uL (4.8-10.8)
[2024-05-12 13:34] LABS: Glucose, Whole Blood 113 mg/dL (60-115)
[2024-05-12 13:40] LABS: Anion Gap 16 (12-20); Blood Urea Nitrogen 24 mg/dL (9-16); Calcium 10.3 mg/dL (8.4-10.2); Carbon Dioxide 28 mmol/L (22-29); Chloride 105 mmol/L (96-108); Creatinine Clr Calc Pharmacy 59.2; Estimated Glomerular Filt Rate 53; Glucose Random 108 mg/dL (60-115); Potassium 3.9 mmol/L (3.3-5.1); Sodium 145 mmol/L (135-145)
[2024-05-12 13:55] LABS: Troponin-I High Sensitivity < 2.7 ng/L (<3.5-17.0)
[2024-05-12 14:13] LABS: Influenza A PCR NEGATIVE (Negative); Influenza B PCR NEGATIVE (Negative); Resp Syncy Virus RNA Qual PCR NEGATIVE (Negative); SARS COV2 PCR INHOUSE NEGATIVE (Negative)
[2024-05-12] MEDS: Lactated Ringers 1,000 ML 999 ML IV (14:37)
[2024-05-12 16:18] VITALS: BP 141/77; PULSE 97; RESP 16; TEMP 36.6; O2SAT 98
== END 2024-05-12 17:17 | disposition home or self-care (01) ==
PROVIDERS: Emergency Provider Emergency Medicine; PCP Internal Medicine
DX: I95.1 Orthostatic hypotension (principal); R07.89 Other chest pain; I10 Essential (primary) hypertension; Z87.891 Personal history of nicotine dependence; Z79.899 Other long term (current) drug therapy; Z03.818 Encounter for observation for suspected exposure to other biological agents ruled out
CPT/HCPCS: 0241U; 36415; 71046; 80048; 82947; 84484; 85025; 93005; 99284; 99285; J7120

== ENCOUNTER → 2024-05-12 12:21 | Outpatient (BNV) | payer MEDICARE, SELFPAY | PROVIDERS: Emergency Provider Emergency Medicine; PCP Internal Medicine; Visit Provider Internal Medicine | DX: R94.31 Abnormal electrocardiogram [ECG] [EKG] (principal) | CPT/HCPCS: 93010 ==

== ENCOUNTER 2025-07-08 06:12 | Emergency (ER) | payer MEDICARE, SELFPAY ==
--- OUTSIDE RECORDS SUMMARY | 2025-07-06 15:03 | XMS_ITS | Continuity of Care Document ---
Author Organization [facility] ter Address [address] [place] [id number]- Care Team Providers Care Counseling Aide Name Role Phone Angelia OSCAR, Speedy Merino Primary Care Physician Encounter [facility] Date(s): 07/06/25 - 07/06/[address] [address]- Encounter Diagnosis Accidental fall(Final) - 07/06/25 Discharge Disposition: A-D/C Home Attending Physician: Juan Antonio Pittman MD Admitting Physician: Juan Antonio Pittman MD Referring Physician: Not on Staff, Referring MD Encounter Type: Disch ES Allergies, Adverse Reactions, Alerts Substance Criticality Severity Reaction Reaction Severity Status iodinated radiocontrast dyes Unable to assess criticality Persistent Severe huge hives Active traMADOL Unable to assess criticality Persistent Severe breathing difficulty Active Immunizations Given and Recorded Vaccine Date Status Refusal Reason influenza virus vaccine, inactivated 07/22/24 Mike rded influenza virus vaccine, inactivated 07/17/23 Mike rded influenza virus vaccine, inactivated 08/11/22 Mike rded influenza virus vaccine, inactivated 08/09/21 Mike rded influenza virus vaccine, inactivated 07/31/18 Mike rded influenza virus vaccine, inactivated 07/21/18 Mike rded influenza virus vaccine, inactivated 1 08/13/17 Re corded influenza virus vaccine, inactivated 2 08/24/16 Re corded influenza virus vaccine, inactivated 07/19/16 Mike rded influenza virus vaccine, inactivated 08/11/15 Mike rded influenza virus vaccine, inactivated 3 08/09/15 Re corded influenza virus vaccine, inactivated 08/08/14 Give n influenza virus vaccine, inactivated 08/04/14 Mike rded influenza virus vaccine, inactivated 9/26/13 Give n influenza virus vaccine, inactivated 08/06/13 Mike rded influenza virus vaccine, inactivated 08/01/12 Mike rded SARS-CoV-2(COVID-19)mRNA-LNP vac([id number]) 07/22/24 Recorded RSV vaccine preF3, recombinant 10/30/23 Recorded pneumococcal 20-valent conjugate vaccine 05/12/23 Recorded [id number] bivalent booster vax 08/13/22 Recorded [id number] bivalent booster vax 08/10/22 Recorded Influenza Virus Vaccine (oldterm) 08/07/22 Recorde d Influenza Virus Vaccine (oldterm) 07/23/20 Recorde d Influenza Virus Vaccine (oldterm) 07/25/19 Recorde d Influenza Virus Vaccine (oldterm) 09/01/08 Given Influenza Virus Vaccine (oldterm) 08/21/07 Given SARS-CoV-2 (COVID-19) mRNA BNT-162b2 vac 08/25/21 Recorded SARS-CoV-2 (COVID-19) mRNA BNT-162b2 vac 01/07/21 Given SARS-CoV-2 (COVID-19) mRNA BNT-162b2 vac 12/17/20 Recorded Zoster Vaccine Live 07/23/19 Recorded Zoster Vaccine Live 12/10/12 Recorded zoster vaccine, inactivated 07/02/19 Recorded zoster vaccine, inactivated 05/02/19 Recorded zoster vaccine, inactivated 05/01/19 Recorded tetanus/diphtheria/pertussis, acel(Tdap) 04/23/17 Given pneumococcal 13-valent vaccine 02/17/15 Given Zostavax (oldterm) 4 02/11/13 Given Zostavax (oldterm) 12/12/12 Given Fluvirin (oldterm) 5 08/05/12 Given FluLaval (oldterm) 6 09/12/10 Given pneumococcal 23-valent vaccine 02/25/09 Given Tetanus Toxoid Vaccine (oldterm) 11/12/06 Given Tetanus Toxoid Vaccine (oldterm) 11/12/97 Given 1Result Comment: [08/15/2017] [facility] 2Location History: [facility] 3Result Comment: [08/11/2015] Given at [facility] on [address] in [facility] 4Admin Note: EDWARD 5Admin Note: [facility] 6Admin Note: [facility], [facility] [address] Medications Benadryl 25 mg oral tablet 50 mg, 2, tablet, By Mouth, Once, PRN as needed for motion sickness, Take 2 tablets [address] scan, # 2 tablet, 0 Refills, Soft Stop Start Date: 05/08/23 Status: Ordered Quantity: 2.0 Unit: tablet Repeat number: 1 Centrum Silver 1 tablet, By Mouth, Daily, 0 Refills, Maintenance, 05/19/20 1:43:00 PM EDT Start Date: 05/19/20 Status: Ordered Repeat number: 1 Claritin 10 mg oral tablet 10 mg, 1, tablet, By Mouth, Daily, 0 Refills Start Date: 03/06/06 Status: Ordered Repeat number: 1 fluticasone 50 mcg/inh nasal spray See Instructions, Use 2 spray(s) in each nostril once daily, # 48 Gm, 10 Refills, Maintenance, 03/31/25 9:50:00 AM EDT, [facility], 90, Use 2 spray(s) in each nostril once daily, 168, cm, 02/26/25 12:34:00 EDT, Height, 127, kg, 01/27/25 9:39:00 EDT, Dry Weight Start Date: 03/31/25 Status: Ordered Quantity: 48.0 Unit: g Repeat number: 1 hydrochlorothiazide-valsartan 12.5 mg-80 mg oral tablet 1 tablet, By Mouth, Daily, # 90 tablet, 1 Refills, Maintenance, 06/23/25 8:30:00 AM EDT, [facility], 90, Take 1 tablet by mouth once daily, 168, cm, 04/16/25 9:44:00 EDT, Height, 127, kg, 01/27/25 9:39:00 EDT, Dry Weight Start Date: 06/23/25 Status: Ordered Quantity: 90.0 Unit: tablet Repeat number: 1 levothyroxine 0.137 mg oral tablet 1 tablet, By Mouth, Daily, # 90 tablet, 1 Refills, Maintenance, 02/24/25 10:17:00 AM EDT, [facility], 168, cm, 01/27/25 9:39:00 EDT, Height, 127, kg, 01/27/25 9:39:00 EDT, Dry Weight Start Date: 02/24/25 Status: Ordered Quantity: 90.0 Unit: tablet Repeat number: 1 meclizine 25 mg oral tablet 1 tablet = 25 mg, By Mouth, 3 times a day, PRN for dizziness, # 30 tablet, 0 Refills, Maintenance, 05/21/24 11:48:00 AM EDT, Tablet, [facility], Partial fill upon patient request if the prescription is for a schedule II opioid drug., 170.18, cm, 05/21/24 10:58:00 EDT, Height, 125.2, kg, 07/27/22 11:08:00 EDT, Dry Weight Start Date: 05/21/24 Status: Ordered Quantity: 30.0 Unit: tablet Repeat number: 1 MetFORMIN (Eqv-Glucophage XR) 500 mg oral tablet, extended release 4 tablet, By Mouth, Daily, # 360 tablet, 1 Refills, Maintenance, 05/21/25 6:54:00 AM EDT, [facility], 168, cm, 04/16/25 9:44:00 EDT, Height, 127, kg, 01/27/25 9:39:00 EDT, Dry Weight Start Date: 05/21/25 Status: Ordered Quantity: 360.0 Unit: tablet Repeat number: 1 Metoprolol Succinate ER 25 mg oral tablet, extended release 0.5 tablet = 12.5 mg, By Mouth, Daily, # 45 tablet, 3 Refills, Maintenance, 07/07/24 10:54:00 AM EDT, [facility], 170.18, cm, 07/07/24 10:31:00 EDT, Height, 125.2, kg, 07/27/22 11:08:00 EDT, Dry Weight Start Date: 07/07/24 Stop Date: 07/02/25 Status: Ordered Quantity: 45.0 Unit: tablet Repeat number: 4 One Touch Delica Lancets See Instructions, # 100 each, Refills 11, Tot. Refills 11, Maintenance, 1 box = 100 lancets dm2 e11.9 check blood sugar twice a day and as needed, 09/07/20 2:23:00 PM EDT, Supply, 168.9, cm, 09/07/2013:51:00 EDT, Height, 129, kg, 06/01/20 6:35:00 EDT, Dry Weight Start Date: 09/07/20 Status: Ordered Quantity: 100.0 Unit: each Repeat number: 12 One Touch Ultra 2 Glucose Meter See Instructions, # 1 each, Maintenance, dm2 e11.9 check blood sugar twice a day and as needed, 09/07/20 2:23:00 PM EDT, Supply, 168.9, cm, 09/07/20 13:51:00 EDT, Height, 129, kg, 06/01/20 6:35:00 EDT, Dry Weight Start Date: 09/07/20 Status: Ordered Quantity: 1.0 Unit: each Repeat number: 1 One Touch Ultra Test Strips See Instructions, # 100 each, Refills 11, Tot. Refills 11, Maintenance, dm2 e11.9 check blood sugartwice a day and as needed, 09/07/20 2:23:00 PM EDT, Supply, 168.9, cm, 09/07/20 13:51:00 EDT, Height, 129, kg, 06/01/20 6:35:00 EDT, Dry Weight Start Date: 09/07/20 Status: Ordered Quantity: 100.0 Unit: each Repeat number: 12 pantoprazole 20 mg oral delayed release tablet 1 tablet = 20 mg, By Mouth, Daily, # 30 tablet, 5 Refills, Maintenance, 05/26/25 12:42:00 PM EDT, CRTablet, 168, cm, 04/16/25 9:44:00 EDT, Height, 127, kg, 01/27/25 9:39:00 EDT, Dry Weight Start Date: 05/26/25 Status: Ordered Quantity: 30.0 Unit: tablet Repeat number: 6 rosuvastatin 40 mg oral tablet 1 tablet, By Mouth, Daily, # 90 tablet, 1 Refills, Maintenance, 01/13/25 11:47:00 AM EST, [facility], 168, cm, 11/18/24 12:30:00 EST, Height, 127.5, kg, 11/03/24 17:33:00 EST, Dry Weight Start Date: 01/13/25 Status: Ordered Quantity: 90.0 Unit: tablet Repeat number: 1 Vitamin D3 2000 intl units oral tablet 1 tablet = 2,000 International_Units, By Mouth, Daily, 0 Refills, Maintenance, 11/24/19 11:29:00 AM EST Start Date: 11/24/19 Status: Ordered Repeat number: 1 Problem List Condition Confirmation Course Effective Dates Status Health Status Informant Allergic rhinitis Confirmed Active Anemia Confirmed Active Carcinoid tumor Confirmed Active Malignant carcinoid tumor of the left upper lobe bronchus Confirmed 12/22/19 Active Chronic mid back pain Confirmed Active Chronic female pelvic pain Confirmed Active Abnormal computed tomography angiography (CTA) of abdomen and pelvis Confirmed Active Diverticulosis 1 Confirmed Active Dyspnea Confirmed Active Dyspnea on exertion Confirmed Active Dysuria Confirmed Active Former smoker - quit age 54 Confirmed Active External hemorrhoids Confirmed Active Family history of colorectal cancer Confirmed Active GERD (gastroesophageal reflux disease) Confirmed Active Gastroesophageal reflux disease with hiatal hernia Confirmed Active H/O spinal stenosis Confirmed Active Headache disorder Confirmed Active Hematuria 2 Confirmed Active Internal and external hemorrhoids without complication 3 Confirmed Active History of colonoscopy 4, 5, 6 Confirmed Active History of skin cancer - right side of face Confirmed Active History of colon polyps 7, 8, 9, 10, 11 Confirmed Active Personal history of colonic polyps Confirmed Active Hypercholesterolemia Confirmed Active Hypertension Confirmed Active Hypothyroid Confirmed Active Loose stools Confirmed Active Lumbar spondylosis Confirmed Active Melena Confirmed Active Menopausal state since age 50 Confirmed Active Nephrolithiasis Confirmed Active Osteoarthritis Confirmed Active Osteoporosis Confirmed Active Neuropathy, peripheral Confirmed Active PMR (polymyalgia rheumatica) Confirmed Active Frequent falls Confirmed Active Last Pap smear 09/21/22 negative with negative HPV. Age >65, no further screening Pap smears needed Confirmed Active Obesity Confirmed Active Skin lesion Confirmed Active Hepatic steatosis 12 Confirmed Active Diabetes mellitus type 2 in obese Confirmed Active Urge urinary incontinence Confirmed Active Vitamin D Deficiency Confirmed Active 2018 2Workup in the past by urology negative. 3colo 2018 4Colonoscopy 2024 positive polyp, repeat 2027. 78314; repeat 2024 36627; repeat 2019 7Colonoscopy 2024 positive polyps x 2, repeat 2027. 8Colonoscopy 2021, polyp x3, repeat 2024. 9colo 01/2019; repeat recommended in 3-6 months 10Colonoscopy 2012 polyp, repeat 2017 11colo 2008 nl, repeat 2012 12CT scan 2021 Results Radiology Reports * Exam Date Time Procedure Performing Provider Status 07/06/25 10:[address] Maxilloface W/O Contrast Auth (Verified) Notes: (CT Maxilloface W/O Contrast) Reason For Exam: Trauma RESULT: CT Maxilloface W/O Contrast CT Head/Brain W/O Contrast, CT Cervical Spine W/O Contrast, CT Maxilloface W/O Contrast INDICATION: Injury after fall from standing and facial strike COMPARISON: Chest 05/11/2023 TECHNIQUE: Incremental CT scan through the head and spiral CT through the face and cervical spine without contrast, formatted in multiple planes. Images were also reconstructed on-the-fly using the PACS multiplanar reconstruction tool The cervical and facial portions of the exam were performed withautomatic exposure control. CTDIvol Body: 20.70 mGy, DLP Body: 665 mGy*cm. CTDIvol Head: 39.40 mGy, DLP Head: 671 mGy*cm. FINDINGS: HEAD: BRAIN:No parenchymal hemorrhage, midline shift or mass effect. Marrero-white matter differentiation iswell preserved. EXTRA-AXIAL SPACES: No subarachnoid, subdural or epidural hemorrhage. BASILAR CISTERNS:Normal. CALVARIUM, SKULL BASE AND SOFT TISSUES:No bone lesions or fractures. Unremarkable soft tissues. CERVICAL SPINE: CERVICO-OCCIPITAL JUNCTION: Intact. ODONTOID PROCESS and C1/2 ARTICULATION: Intact. SPINE: No fracture or malalignment. Moderate to severe multifocal degenerative disc and facet arthropathy. OTHER BONES: The portions of the clavicles, scapulas and upper ribs included on the exam are normal. SOFT TISSUES AND LUNG APICES: Stable lineal scarring in the medial left upper lobe. No pneumothorax. MAXILLOFACIAL: Paranasal sinuses: Normal. Nasal bones: Normal. Zygomatic arches: Normal. Pterygoid plates. Normal. Mandible: Normal. Orbits: Normal. IMPRESSION: No acute abnormality of the head, face or cervical spine. WSN: [id number] Ordering Physician: Pablo Evans Dictated By: Pablo Romero MD Dictated Date/Time: 07/06/25 11:03 a Reviewed By: Pablo Romero MD Signed By: Pablo Romero MD Signed Date/Time: 07/06/25 11:03 am Transcribed By: EDWIN Transcribed Date/Time: 07/06/25 10:55 am * Exam Date Time Procedure Performing Provider Status 07/06/25 10:[address] Cervical Spine W/O Contrast Auth (Verified) Notes: (CT Cervical Spine W/O Contrast) Reason For Exam: Neck trauma, dangerous injury mechanism;Other: RESULT: CT Cervical Spine W/O Contrast CT Head/Brain W/O Contrast, CT Cervical Spine W/O Contrast, CT Maxilloface W/O Contrast INDICATION: Injury after fall from standing and facial strike COMPARISON: Chest 05/11/2023 TECHNIQUE: Incremental CT scan through the head and spiral CT through the face and cervical spine without contrast, formatted in multiple planes. Images were also reconstructed on-the-fly using the PACS multiplanar reconstruction tool The cervical and facial portions of the exam were performed withautomatic exposure control. CTDIvol Body: 20.70 mGy, DLP Body: 665 mGy*cm. CTDIvol Head: 39.40 mGy, DLP Head: 671 mGy*cm. FINDINGS: HEAD: BRAIN:No parenchymal hemorrhage, midline shift or mass effect. Marrero-white matter differentiation iswell preserved. EXTRA-AXIAL SPACES: No subarachnoid, subdural or epidural hemorrhage. BASILAR CISTERNS:Normal. CALVARIUM, SKULL BASE AND SOFT TISSUES:No bone lesions or fractures. Unremarkable soft tissues. CERVICAL SPINE: CERVICO-OCCIPITAL JUNCTION: Intact. ODONTOID PROCESS and C1/2 ARTICULATION: Intact. SPINE: No fracture or malalignment. Moderate to severe multifocal degenerative disc and facet arthropathy. OTHER BONES: The portions of the clavicles, scapulas and upper ribs included on the exam are normal. SOFT TISSUES AND LUNG APICES: Stable lineal scarring in the medial left upper lobe. No pneumothorax. MAXILLOFACIAL: Paranasal sinuses: Normal. Nasal bones: Normal. Zygomatic arches: Normal. Pterygoid plates. Normal. Mandible: Normal. Orbits: Normal. IMPRESSION: No acute abnormality of the head, face or cervical spine. WSN: [id number] Ordering Physician: Pablo Evans Dictated By: Pablo Romero MD Dictated Date/Time: 07/06/25 11:03 a Reviewed By: Pablo Romero MD Signed By: Pablo Roemro MD Signed Date/Time: 07/06/25 11:03 am Transcribed By: EDWIN Transcribed Date/Time: 07/06/25 10:55 am * Exam Date Time Procedure Performing Provider Status 07/06/25 10:[address] Head/Brain W/O Contrast Auth (Verified) Notes: (CT Head/Brain W/O Contrast) Reason For Exam: Trauma RESULT: CT Head/Brain W/O Contrast CT Head/Brain W/O Contrast, CT Cervical Spine W/O Contrast, CT Maxilloface W/O Contrast INDICATION: Injury after fall from standing and facial strike COMPARISON: Chest 05/11/2023 TECHNIQUE: Incremental CT scan through the head and spiral CT through the face and cervical spine without contrast, formatted in multiple planes. Images were also reconstructed on-the-fly using the PACS multiplanar reconstruction tool The cervical and facial portions of the exam were performed withautomatic exposure control. CTDIvol Body: 20.70 mGy, DLP Body: 665 mGy*cm. CTDIvol Head: 39.40 mGy, DLP Head: 671 mGy*cm. FINDINGS: HEAD: BRAIN:No parenchymal hemorrhage, midline shift or mass effect. Marrero-white matter differentiation iswell preserved. EXTRA-AXIAL SPACES: No subarachnoid, subdural or epidural hemorrhage. BASILAR CISTERNS:Normal. CALVARIUM, SKULL BASE AND SOFT TISSUES:No bone lesions or fractures. Unremarkable soft tissues. CERVICAL SPINE: CERVICO-OCCIPITAL JUNCTION: Intact. ODONTOID PROCESS and C1/2 ARTICULATION: Intact. SPINE: No fracture or malalignment. Moderate to severe multifocal degenerative disc and facet arthropathy. OTHER BONES: The portions of the clavicles, scapulas and upper ribs included on the exam are normal. SOFT TISSUES AND LUNG APICES: Stable lineal scarring in the medial left upper lobe. No pneumothorax. MAXILLOFACIAL: Paranasal sinuses: Normal. Nasal bones: Normal. Zygomatic arches: Normal. Pterygoid plates. Normal. Mandible: Normal. Orbits: Normal. IMPRESSION: No acute abnormality of the head, face or cervical spine. WSN: [id number] Ordering Physician: Pablo Evans Dictated By: Pablo Romero MD Dictated Date/Time: 07/06/25 11:03 a Reviewed By: Pablo Romero MD Signed By: Pablo Romero MD Signed Date/Time: 07/06/25 11:03 am Transcribed By: EDWIN Transcribed Date/Time: 07/06/25 10:55 am * Exam Date Time Procedure Performing Provider Status 07/06/25 9:33 AM Knee 1 or 2 Views Left Au (Verified) Notes: (Knee 1 or 2 Views Left) Reason For Exam: with Pain;Trauma RESULT: Knee 1 or 2 Views Left Knee 1 or 2 Views Right, Knee 1 or 2 Views Left, 2 views Hx of Present Illness: from home after experiencing a mechanical fall, pt states she tripped over her feet, fell facefoward landing on face and knees. denies any loc. denies thinners.; Reason: Trauma; with Pain; Clinical Question(s): Fracture COMPARISON: 07/28/2010. FINDINGS: RIGHT KNEE: Status post total knee replacement with hardware appearing in appropriate position. No bone lesions or fractures. No arthritic changes. No osteochondral defects or intra-articular loose bodies. No evidence of joint effusion. LEFT KNEE: Status post total knee replacement with hardware appearing in appropriate position. No bone lesions or fractures. No arthritic changes. No osteochondral defects or intra-articular loose bodies. No evidence of joint effusion. Mild swelling of the infrapatellar subcutaneous tissues. IMPRESSION: 1. No acute osseous abnormality of the right or left knees. 2. Mild swelling of the left infrapatellar subcutaneous tissues. 3. Status post bilateral total knee replacements without evidence of hardware malfunction. I have personally reviewed the images and I agree with this report. WSN: [id number] Ordering Physician: Pablo Evans Dictated By: Harriett Monet DO Dictated Date/Time: 07/06/25 11:06 a Reviewed By: Emanuel Champion MD, V Signed By: Emanuel Champion MD, V Signed Date/Time: 07/06/25 11:11 am Transcribed By: EDWIN Transcribed Date/Time: 07/06/25 10:56 am * Exam Date Time Procedure Performing Provider Status 07/06/25 9:33 AM Knee 1 or 2 Views Right [facility] (Verified) Notes: (Knee 1 or 2 Views Right) Reason For Exam: with Pain;Trauma RESULT: Knee 1 or 2 Views Right Knee 1 or 2 Views Right, Knee 1 or 2 Views Left, 2 views Hx of Present Illness: from home after experiencing a mechanical fall, pt states she tripped over her feet, fell facefoward landing on face and knees. denies any loc. denies thinners.; Reason: Trauma; with Pain; Clinical Question(s): Fracture COMPARISON: 07/28/2010. FINDINGS: RIGHT KNEE: Status post total knee replacement with hardware appearing in appropriate position. No bone lesions or fractures. No arthritic changes. No osteochondral defects or intra-articular loose bodies. No evidence of joint effusion. LEFT KNEE: Status post total knee replacement with hardware appearing in appropriate position. No bone lesions or fractures. No arthritic changes. No osteochondral defects or intra-articular loose bodies. No evidence of joint effusion. Mild swelling of the infrapatellar subcutaneous tissues. IMPRESSION: 1. No acute osseous abnormality of the right or left knees. 2. Mild swelling of the left infrapatellar subcutaneous tissues. 3. Status post bilateral total knee replacements without evidence of hardware malfunction. I have personally reviewed the images and I agree with this report. WSN: [id number] Ordering Physician: Pablo Evans Dictated By: Harriett Monet DO Dictated Date/Time: 07/06/25 11:06 a Reviewed By: Emanuel Champion MD, V Signed By: Emanuel Champion MD, V Signed Date/Time: 07/06/25 11:11 am Transcribed By: EDWIN Transcribed Date/Time: 07/06/25 10:56 am * Exam Date Time Procedure Performing Provider Status 07/06/25 9:33 AM Chest 2 Views Frontal and Lat Auth (Verified) Notes: (Chest 2 Views Frontal and Lat) Reason For Exam: Shortness of Breath RESULT: Chest 2 Views Frontal and Lat Chest 2 Views Frontal and Lat Hx of Present Illness: from home after experiencing a mechanical fall, pt states she tripped over her feet, fell facefoward landing on face and knees. denies any loc. denies thinners.; Reason: Shortness of Breath; Clinical Question(s): Pneumonia COMPARISON: Multiple priors, most recent 11/24/2019. CT chest without contrast dated 05/11/2023. FINDINGS: LINES AND TUBES: None. LUNGS AND PLEURA: Persistent tubular lucencies in the left upper lobe correlates with previously demonstrated bronchiectasis and parenchymal scarring. Otherwise no focal consolidation. Normal pulmonary vascularity. No evidence of pleural effusion. No pneumothorax. HEART, MEDIASTINUM AND KAILEE: Heart is normal in size. Normal mediastinal and hilar contour. BONES AND SOFT TISSUES: No acute abnormality. Multilevel degenerative changes of the visualized spine. IMPRESSION: No acute abnormality. I have personally reviewed the images and I agree with this report. WSN: [id number] Ordering Physician: Pablo Evans Dictated By: Harriett Monet DO Dictated Date/Time: 07/06/25 10:10 a Reviewed By: Emanuel Champion MD, V Signed By: Emanuel Champion MD, V Signed Date/Time: 07/06/25 10:15 am Transcribed By: EDWIN Transcribed Date/Time: 07/06/25 10:07 am * Exam Date Time Procedure Performing Provider Status 07/06/25 9:33 AM Hand Min 3 Views Right Au th (Verified) Notes: (Hand Min 3 Views Right) Reason For Exam: with Pain;Trauma RESULT: Hand Min 3 Views Right Hand Min 3 Views Right, 3 views Hx of Present Illness: from home after experiencing a mechanical fall, pt states she tripped over her feet, fell facefoward landing on face and knees. denies any loc. denies thinners.; Reason: Trauma; with Pain; Clinical Question(s): Fracture COMPARISON: 10/11/2011 FINDINGS: No fractures or bone lesions. No arthritic changes. Normal soft tissues. IMPRESSION: No acute osseous abnormality. I have personally reviewed the images and I agree with this report. WSN: [id number] Ordering Physician: Pablo Evans Dictated By: Harriett Monet DO Dictated Date/Time: 07/06/25 9:53 am Reviewed By: Emanuel Champion MD, V Signed By: Emanuel Champion MD, V Signed Date/Time: 07/06/25 9:58 am Transcribed By: EDWIN Transcribed Date/Time: 07/06/25 9:45 am * Exam Date Time Procedure Performing Provider Status 07/06/25 9:33 AM Forearm 2 Views Right Aut h (Verified) Notes: (Forearm 2 Views Right) Reason For Exam: with Pain;Trauma RESULT: Forearm 2 Views Right Forearm 2 Views Right Hx of Present Illness: from home after experiencing a mechanical fall, pt states she tripped over her feet, fell facefoward landing on face and knees. denies any loc. denies thinners.; Reason: Trauma; with Pain; Clinical Question(s): Fracture; Order Comment: pt. not ready needs meds EKG @ 07 06 [id number]:17:18 EDT PH COMPARISON: None. FINDINGS: No fractures or bone lesions. Small osteophyte adjacent to the medial epicondyle is likely related to chronic degenerative changes versus old fracture. The visualized joint spaces are normal. Mild spurring of the olecranon. Normal soft tissues. IMPRESSION: No acute osseous abnormality. I have personally reviewed the images and I agree with this report. WSN: [id number] Ordering Physician: Pablo Evans Dictated By: Harriett Monet DO Dictated Date/Time: 07/06/25 9:52 am Reviewed By: Emanuel Champion MD, V Signed By: Emanuel Champion MD, V Signed Date/Time: 07/06/25 9:57 am Transcribed By: EDWIN Transcribed Date/Time: 07/06/25 9:42 am * Exam Date Time Procedure Performing Provider Status 07/06/25 9:33 AM Shoulder Min 2 Views Right Auth (Verified) Notes: (Shoulder Min 2 Views Right) Reason For Exam: with Pain;Trauma RESULT: Shoulder Min 2 Views Right Right shoulder, 2 views Hx of Present Illness: from home after experiencing a mechanical fall, pt states she tripped over her feet, fell facefoward landing on face and knees. denies any loc. denies thinners.; Reason: Trauma; with Pain; Clinical Question(s): Fracture COMPARISON: 10/11/2011 FINDINGS: No fracture or dislocation. Mild glenohumeral joint space narrowing and marginal spurring. Mild degenerative changes of the AC joint. The portion of the clavicle included on the exam is normal. No calcification of the rotator cuff. IMPRESSION: No acute osseous abnormality. I have personally reviewed the images and I agree with this report. WSN: [id number] Ordering Physician: Pablo Evans Dictated By: Harriett Monet DO Dictated Date/Time: 07/06/25 9:51 am Reviewed By: Emanuel Champion MD, V Signed By: Emanuel Champion MD, V Signed Date/Time: 07/06/25 9:56 am Transcribed By: EDWIN Transcribed Date/Time: 07/06/25 9:39 am Social History Social History Type Response Smoking Status Former smoker, quit more than 30 days ago; Other: 1.5 ppd. quit 1995; entered on: 01/16/20 Sex Sex Representation Female (finding) EKG study * Event Display: ECG 12-Lead Authored Date: [id number] Please click on pdf link to open report * Event Display: ECG 12-Lead Authored Date: [id number] Ventricular Rate: 87 BPM Atrial Rate: 87 BPM P-R Interval: 166 ms QRS Duration: 104 ms Q-T Interval: 414 ms QTC Calculation(Bazett): 498 ms P Cashion: 53 degrees R Cashion: -22 degrees T Cashion: 31 degrees Normal sinus rhythm Possible Inferior infarct (cited on or before 23-Jan-2019) QTcB > 480 msec Abnormal ECG When compared with ECG of 03-Nov-2024 17:29, No significant change was found Confirmed by Speedy Salinas ([id number]) on 07/06/2025 11:40:48 AM [place]: Speedy Salinas * Event Display: EKG Authored Date: [id number] Note * Pablo Evans MD: PERFORM Event Display: Patient Education Leaflets Authored Date: [id number] Fall??Prevention ?? [id number] Fall??Prevention Falls often take place due to slipping, tripping, or losing your balance. Millions of people fall every year and injure themselves.??Among older adults in the [place] falls are the most common cause oftraumatic brain injuries. Every 20 minutes, an older adult dies from a fall. Here are ways to reduce your risk of falling again: ??? Think about your fall. Was there anything that caused your fall that can be fixed, removed, or replaced? Make your home safe by keeping walkways clear of objects you may trip over, such as animal toys and electrical cords. ??? If you are sad or depressed talk toyour health care provider. Symptoms of depression, such as feeling under the weather, or physically slowed down, have been linked to an increased fall risk. ??? Drink fluids throughout the day. Dehydration can lead to dizziness and increase your risk of falling. It's best to talk to your primary care providers about how much water you should drink. They know your medical history, your current prescriptions and your uivd-lua-cmygilr medicines. As a general rule, the [employer] [place] [employer] ([place]) recommends taking one-third of your body weight and drinking that number of ounces in fluids. For example, if you weigh 150 pounds, you would drink at least 50 ounces, or about 6 cups, of fluid each day. Ask your provider if it's safe for you to use this formula. ??? Use nonslip pads under rugs. Don't use area rugs or small throw rugs. ??? Use nonslip mats in bathtubs and showers. ??? Hang grab rails by the toilet and inside and outside the shower. ??? Install handrails and lights on staircases. The handrails should be on both sides of the stairs. ??? Use night lights. ??? Don't walk in poorly lit areas. ??? Don't stand on chairs or wobbly ladders. ??? Use care when reaching overhead orlooking up.??This position can cause a loss of balance. ??? Be sure your shoes fit well, are in good condition, and have nonslip bottoms. ??? Wear shoes both inside and outside of your home. Don't gobarefoot or wear slippers. ??? Be cautious when going up and down stairs, curbs, and when walking on uneven sidewalks. ??? If your balance is poor, consider using a cane or walker. Talk with your health care provider about having a balance assessment. ??? If your fall was related to alcohol use, stop or limit alcohol intake.??Ask your provider for help if you think you may overuse alcohol and can't stop. ??? If your fall was related to use of sleeping medicines, talk with your provider about this.??You may need to reduce your dosage at bedtime if you wake up during the night to go to the bathroom. ??? To reduce the need for nighttime bathroom trips: o Don't drink fluids for several hours before going to bed. o Empty your bladder before going to bed. o Men can keep a urinal at the bedside.??? Stay as active as you can. Balance, flexibility, strength, and endurance all come from exercise. They all play a role in preventing falls. Ask your provider which types of activity are right for you. Try to do some type of exercise every day. ??? Get your eyes checked once a year or more often if your vision changes. Be extra cautious while adjusting to new prescription lenses. ??? If you have pets, know where they are before you stand up or walk so you don't trip over them. ??? Go over allyour medicines with a pharmacist or other provider. This is to see if any of them could make you more likely to fall. Have this type of medicine review at least once every year. ??? If your provider advises a new medicine, ask if the side effects will affect your balance. ??? Don't move quickly from one position to another. For instance, don't stand up fast from sitting. This can cause dizziness and may lead to a fall. ??? Sit down when putting on pants, socks, and shoes. This will make you less likely to lose your balance and fall. ??? Always let your provider know if you have fallen since yo ur last visit. ??? Contact your provider right away if you're having balance problems or falling more often. Last Reviewed Date: 2025 00:00:00 ?? [id number] [employer]. All rights reserved. This information is not intended as a substitute for professional medical care. Always follow your healthcare professional's instructions. ?? * Pablo Evans MD: PERFORM Event Display: Patient Education Leaflets Authored Date: [id number] Falls Prevention Initiative ?? 688 ? Falls Prevention Initiative (F.P.I.)? Your visit to [facility] has alerted us that you are at risk for falling. Based on your responses to our Falls screening questions, you are a candidate for The Falls Prevention Initiative. [facility] Physical Therapy can help improve your strength, balance and walking. Let ushelp you to regain confidence in your mobility to get back to the activities you enjoy. ?? Please contact your primary care provider to obtain a physical therapy order. To make an appointment at any [facility] location, call [phone] (option 3-Rehabilition) ? Patient Care team information Care Team Personnel Name: Speeyd Lara RN Position: [facility] RN Member Role: Primary Care Nurse Name: Speedy Galan MD Position: [facility] Physician - Primary Care Member Role: PCP Address: [address] [place] [id number] [[email or web address] Telecom: Care Team Related Persons Name: ITA MATTHEWS Insurance Providers Guarantor name: JUSTIN MATTHEWS Health Plan Information #: 1 Payer: [facility] PPO Payer Identifier: JJ Member Number: [id number] Group Number: [id number] Subscriber Identifier: [id number] Relationship to Subscriber: self Coverage Type: Medicare PPO Coverage Verification Date: Telecom: NA Address:
[2025-07-08 06:24] VITALS: BP 151/73; BP 190/88; PULSE 85; PULSE 86; RESP 14; TEMP 36.6; O2SAT 97; O2SAT 98; BMI 43.4
--- NOTE | 2025-07-08 06:32 | ECG_ITS ---
Test Reason : DIZZINESS Blood Pressure : */* mmHG Vent. Rate : 80 BPM Atrial Rate : 80 BPM P-R Int : 168 ms QRS Dur : 94 ms QT Int : 420 ms P-R-T Axes : 28 -15 24 degrees QTcB Int : 484 ms Normal sinus rhythm Normal ECG When compared with ECG of 12-May-2024 12:32, No significant changes seen Referred By: Generic ED Physician Electronically Signed By: GISELL GUTIERREZ
[2025-07-08 07:02] LABS: MANUAL DIFF FLAG NO
[2025-07-08 07:06] LABS: Hematocrit 35.6 % (37.0-47.0); Hemoglobin 11.8 g/dl (12.0-16.0); Imm Gran Abs Auto 0.01 X10*3/uL (0.00-0.03); Imm Gran Pct Auto 0.2 % (0.0-0.4); Lymphocytes Absolute Auto 1.8 X10*3/uL (1.2-4.9); Mean Corpuscular HGB Conc 33.1 g/dl (31.0-35.0); Mean Corpuscular Hemoglobin 28.2 pg (27.0-33.0); Mean Corpuscular Volume 85.2 fL (80.0-98.0); NRBC Abs Auto 0.000 X10*3/uL (0.0-0.012); NRBC Pct Auto 0.0 /100WBC (0.0-0.2); Platelet Count 238 X10*3/uL (160-400); Red Blood Count 4.18 X10*6/uL (4.20-5.50); White Blood Count 4.6 X10*3/uL (4.8-10.8)
--- NOTE | 2025-07-08 07:19 | PC.NURSE ---
Pt ambulating to/from BR with walker and 1 assist for safety; pt reports continuous dizziness but able to maintain balance with walker; denies other sx's at this time; urine sample obtained/sent; noted that pt has ecchymotic areas to R eye, R shoulder, R FA and bilat. knees from previous fall
[2025-07-08 07:20] LABS: Alanine Aminotransferase 19 U/L (0-31); Albumin Level 4.3 g/dL (3.5-5.0); Alkaline Phosphatase 77 U/L (39-117); Anion Gap 14 (12-20); Aspartate Amino Transferase 27 U/L (5-31); Blood Urea Nitrogen 19 mg/dL (9-16); Calcium 9.8 mg/dL (8.4-10.2); Carbon Dioxide 25 mmol/L (22-29); Chloride 105 mmol/L (96-108); Creatinine Clr Calc Pharmacy 62.1; Estimated Glomerular Filt Rate 58; Magnesium 1.6 mg/dL (1.6-2.6); Potassium 3.4 mmol/L (3.3-5.1); Sodium 141 mmol/L (135-145); Total Protein 6.6 g/dL (6.5-8.0)
[2025-07-08 07:31] LABS: Troponin-I High Sensitivity < 2.7 ng/L (<3.5-17.0)
[2025-07-08 07:48] LABS: Appearance Urine Clear; Glucose Urine UA Negative (Negative); PH 5.5 (5.0-9.0); Specific Gravity - Urine 1.010 (1.005-1.025); UMIC TRIGGER UACC YES
[2025-07-08 07:50] LABS: UACC Culture Trigger YES
--- NOTE | 2025-07-08 08:42 | ED_ITS ---
HPI - General Adult General Chief complaint: Dizziness Stated complaint: DIZZINESS Time Seen by Provider: 07/08/25 08:42 Source: patient and EMS Mode of arrival: EMS Limitations: no limitations History of Present Illness ED Provider: Cristela Cordova PA-C HPI narrative: Patient is an 80 year old assigned female at with a history of BPPV and recent fall presenting to the emergency department today with continued dizziness with positional movements. Patient states that she had a slip and fall on 07/06 for which she was seen at [facility] and had negative imaging + labs. Patient states that she was dizzy while she was there and given 1 dose of meclizine which helped her some and she was discharged home. Patient states that today she woke up and rolled over then immediately became very dizzy with the room spinning. Patient denies any other complaints at this time. Related Data Home Medications ?Medication ?Instructions ?Recorded ?Confirmed estradiol 0.01% (0.1 mg/gram) 1 g vaginal 3XW 02/19/23 vaginal cream fluticasone propionate 50 spray intranasal 02/19/23 mcg/actuation nasal spray,suspension gabapentin 300 mg capsule 300 mg PO DAILY 02/19/23 levothyroxine 137 mcg tablet 137 mcg PO DAILY 02/19/23 metformin 500 mg tablet,extended 1,000 mg PO BID 02/19 release 24 hr metoprolol succinate 25 mg 25 mg PO DAILY 02/19/23 tablet,extended release 24 hr omeprazole 20 mg capsule,delayed 20 mg PO DAILY release rosuvastatin 40 mg tablet 40 mg PO DAILY 02/19/23 valsartan 160 1 tab PO DAILY 02/19/23 mg-hydrochlorothiazide 25 mg tablet Previous Rx's ?Medication ?Instructions ?Recorded phenazopyridine 100 mg tablet 200 mg (2 x 100 mg) PO T ID 6 doses 06/04/22 (Pyridium) #6 tabs tamsulosin 0.4 mg capsule (Flomax) 0.4 mg PO BEDTIME # 10 caps 06/04/22 acetaminophen 500 mg tablet 500 mg PO Q6H PRN fever or pain 12/28/22 (Tylenol Extra Strength) #14 tabs naproxen 500 mg tablet 500 mg PO BID PRN pain 10 da ys #20 12/28/22 tabs prednisone 20 mg tablet 40 mg (2 x 20 mg) PO DAILY 5 days 12/28/22 #10 tabs phenazopyridine 200 mg tablet 200 mg PO TID 3 days #9 tabs 06/27/23 (Pyridium) sulfamethoxazole 800 1 tab PO BID 5 days #10 tabs 06/27/23 mg-trimethoprim 160 mg tablet (Bactrim DS) cefuroxime axetil 250 mg tablet 500 mg (2 x 250 mg) PO BID 7 days 07/08/25 #28 tabs meclizine 25 mg tablet 25 mg PO DAILY PRN dizziness #7 07/08/25 tabs Allergies Allergy/AdvReac Type Severity Reaction Status Date / Time iodine Allergy Hives Verified 07/08/25 06:29 tramadol Allergy Numbness Verified 07/08/25 06:29 Review of Systems 2 Constitutional: Constitutional: Reports as per HPI Eyes: Eyes: Reports as per HPI ENT: Reports as per HPI Cardiovascular: Cardiovascular: Reports as per HPI Respiratory: Respiratory: Reports as per HPI Gastrointestinal: Gastrointestinal: Reports as per HPI Genitourinary: Genitourinary: Reports as per HPI Musculoskeletal: Musculoskeletal: Reports as per HPI Integumentary/Breasts: Skin/Breast: Reports as per HPI Neurologic: Reports as per HPI Psychiatric: Psychiatric: Reports as per HPI Endocrine: Endocrine: Reports as per HPI Hematologic/Lymphatic: Hematologic/Lymphatic: Reports as per HPI Allergic/Immunologic: Allergic/Immunologic: Reports as per HPI PMF Past Medical History Attestation statement: The following information was validated with the patient. Source: old records reviewed and nursing notes reviewed Social History Social History Alcohol intake: never Patient Tobacco Use Status: Former Tobacco user Smoked in Last 30 Days: No Use of substances other than those prescribed or required for medical reasons: No Advance Directives: No Advance Directives Information Provided: Yes Do you have a plan to hurt others: No Plan Physical Exam ED Vital Signs: Vital Signs - 24 hr 07/08/25 06:24 07/08/25 09:40 07/08/25 12:59 Temperature 97.8 F 97.7 F 98.1 F Pulse Rate 85 83 92 Respiratory Rate 14 18 16 Blood Pressure 151/73 H 127/79 145/79 H Pulse Oximetry 97 100 100 Oxygen Delivery Method Room Air Room Air Room Air 07/08/25 13:02 Temperature 98.1 F Pulse Rate 92 Respiratory Rate 16 Blood Pressure 145/79 H Pulse Oximetry 100 Oxygen Delivery Method Room Air BMI result Body Mass Index 43.4 Const General: cooperative, no acute distress, alert and awake Nutritional Appearance: well nourished Orientation/consciousness: patient oriented x3 HENMT Other: Bruising of various degrees of healing to the right face Ears: hearing grossly normal bilaterally and external ears normal General nose exam: Normal external nose present, no nasal discharge noted and no epistaxis Face and sinus: No abrasion and No laceration Mouth: Normal oral and palatal mucosa present, no drooling and no muffled voice Eyes General: appearance normal, both eyes and all related structures Periorbital: periorbital findings normal Eyelids: Yes eyelids normal Conjunctivae: conjunctivae normal Pupils: Equal, round and reactive pupils present EOM: EOMs intact bilaterally Neck Neck: Yes normal visual inspection and Yes full ROM Resp Effort & Inspection: normal respiratory effort and able to speak in complete sentences Neuro General: patient oriented x3, moves all extremities and CN's II-XI intact bilaterally Cranial nerves: Yes Equal, round and reactive pupils present Cognition (Neuro): normal cognition Extrem Other: bruising in various stages of healing present to the right upper arm and lower arm General: Yes full ROM and Yes capillary refill normal Psych Appearance: grossly normal Mental Status: mental status grossly normal Affect: normal affect Attitude: cooperative Thought process: Normal thought process present Thought content: Normal thought content present Insight: Good insight present (Psych) Medications Administered Discontinued Medications Generic Name Dose Route Start Last Admin Trade Name Bridgerq PRN Reason Stop Dose Admin Ceftriaxone Sodium 1 gm 07/08/25 09:05 07/08/25 09:38 Ceftriaxone Sodium 1 Gm Vial IVPUSH 07/08/25 09:06 1 gm ONCE ONE Administration Sodium Chloride 1,000 mls @ 999 mls/hr 07/08/25 09:15 07/08/25 12:18 Ns IV 07/08/25 10:15 Infused .Q1H1M LIANG Infusion Meclizine HCl 25 mg 07/08/25 09:05 07/08/25 09:38 Meclizine Hcl 25 Mg Tablet PO 07/08/25 09:06 25 mg ONCE ONE Administration Medical Decision Making Medical Decision Making MDM Narrative: Patient is an 80 year old assigned female at with a history of BPPV and recent fall presenting to the emergency department today with continued dizziness with positional movements. Patient's physical exam showed evidence of bruising from her recent fall for which she was already evaluated for at [facility]. Patient's blood work was unremarkable. Patient's urine showed evidence of infection - when asked, patient stated that she has actually had increased urinary frequency. Patient's EKG was unremarkable. I reviewed the patient's imaging from her most recent [facility] Emergency Department visit including CT head, c-spine, and facial bones which were negative. Patient's clinical presentation is most consistent with BPPV. I consulted with PT who performed an Deneen maneuver which effectively resolved the patient's dizziness. I explained my physical exam findings as well as all test results to the patient. I answered all questions asked by the patient. I stressed the importance of the patient taking her medication as directed (either prescribed or as the over the counter packaging recommends). I stressed the importance of the patient following up with her primary care provider. I stressed the importance of the patient returning to the emergency department immediately if her symptoms were to worsen or if she were to develop any dizziness, shortness of breath, difficulty breathing, chest pain, blurry vision, loss of vision, nausea, vomiting, abdominal pain, fever, chills, back pain, or any other complaints. Patient verbalized agreement and understanding with this treatment plan and discharge. Note: Patient was able to walk per her baseline without incident while in the department. Differential Diagnosis Differential Diagnoses: The differential diagnosis associated with the presentation includes BPPV Dizziness UTI Admission/Observation Consideration of admission/observation: Escalation of care including admission/observation considered Patient would have been admitted to the hospital had her work up had any findings where hospital admission was appropriate and her clinical presentation warranted hospital admission. Lab Data [facility] Lab Attestation statement: I reviewed the patient's lab results. My interpretation of these results are in the [facility] Rationale portion of this note. 07/08/25 06:57 07/08/25 06:57 Labs: Lab Results 07/08/25 07/08/25 Range/Units 06:57 07:32 WBC 4.6 L (4.8-10.8) X10*3/uL RBC 4.18 L (4.20-5.50) X10*6/uL Hgb 11.8 L (12.0-16.0) g/dl Hct 35.6 L (37.0-47.0) % MCV 85.2 (80.0-98.0) fL MCH 28.2 (27.0-33.0) pg MCHC 33.1 (31.0-35.0) g/dl RDW 14.0 (11.0-16.0) % Plt Count 238 (160-400) X10*3/uL MPV 9.7 (9.4-12.3) fL Immature Gran % (Auto) 0.2 (0.0-0.4) % Neut % (Auto) 45.5 (45-73) % Lymph % (Auto) 40.2 H (20-40) % Green % (Auto) 8.8 (2-11) % Eos % (Auto) 4.2 H (0-4) % Baso % (Auto) 1.1 (0-2) % Lymph # (Auto) 1.8 (1.2-4.9) X10*3/uL Green # (Auto) 0.4 (0.1-1.2) X10*3/uL Eos # (Auto) 0.2 (0.0-0.4) X10*3/uL Baso # (Auto) 0.1 (0.0-0.2) X10*3/uL Abs Immat Gran (auto) 0.01 (0.00-0.03) X10*3/uL Absolute Neuts (auto) 2.1 (2.0-8.3) x10*3/uL Absolute Nucleated RBC 0.000 (0.0-0.012) X10*3/uL Nucleated RBC % (auto) 0.0 (0.0-0.2) /100WBC Sodium 141 (135-145) mmol/L Potassium 3.4 (3.3-5.1) mmol/L Chloride 105 (96-108) mmol/L Carbon Dioxide 25 (22-29) mmol/L Anion Gap 14 (12-20) BUN 19 H (9-16) mg/dL Creatinine 0.93 (0.5-1.4) mg/dL Estim Creat Clear Calc 62.1 Estimated GFR 58 Random Glucose 174 H (60-115) mg/dL Calcium 9.8 (8.4-10.2) mg/dL Magnesium 1.6 (1.6-2.6) mg/dL Total Bilirubin 0.6 (0.0-1.0) mg/dL AST 27 (5-31) U/L ALT 19 (0-31) U/L Alkaline Phosphatase 77 (39-117) U/L Troponin I High Sens < 2.7 (<3.5-17.0) ng/L Total Protein 6.6 (6.5-8.0) g/dL Albumin 4.3 (3.5-5.0) g/dL Urine Color Yellow Urine Appearance Clear Urine pH 5.5 (5.0-9.0) Ur Specific [place] 1.010 (1.005-1.025) Urine Protein Negative (Neg-Trace) mg/dL Urine Glucose (UA) Negative (Negative) mg/dL Urine Ketones Negative (Negative) mg/dL Urine Blood Negative (Negative) Urine Nitrite Negative (Negative) Ur Leukocyte Esterase Moderate (2+) H (Negative) Urine RBC 0-2 (0-2) /HPF Urine WBC 11-20 H (0-5) /HPF Ur Squamous Epith Cells 3-5 (0-2) /HPF Urine Bacteria None Seen (None Seen) Hyaline Casts 0-2 (0-2) /LPF Independent Interpretation I performed an independent interpretation of an: EKG Interpretation: I independently interpreted this EKG and am in agreement with the below findings: Vent. Rate: 80 BPM Atrial Rate: 80 BPM P-R Int: 168 ms QRS Dur: 94 ms QT Int: 420 ms P-R-T Axes: 28 -15 24 degrees QTcB Int: 484 ms Normal sinus rhythm Normal ECG When compared with ECG of 12-May-2024 12:32, Criteria for Inferior infarct are no longer Present DD/ 0645 Radiology Impression Discussion of test interpretation with radiology: I have reviewed the radiologist's reading. Independent Historian Clinical information obtained from an independent historian. History obtained from or confirmed by: EMS (EMS provided additional history and confirmed the history provided by the patient. ) External Record Review External record reviewed: Outside ED record (Reviewed [facility] ED record from visit on 07/06) Tests considered The following testing was considered but not selected: I considered obtaining a repeat head CT however, given the patient's recent negative scan, no additional trauma, and her clinical presentation - this was not warranted at this time. Critical Care Time Critical Care Time Critical Care Time: Yes Total Critical Care Time: 33 Attestation: I spent 33 minutes of Critical Care Time with this patient. This does not include time spent on separately reported billable procedures. Discharge Plan Discharge Clinical Impression: Benign paroxysmal positional vertigo, Acute UTI Patient Disposition: Home, Self-Care Instructions: Urinary Tract Infection in Women (DC), Vertigo (DC), Benign Paroxysmal Positional Vertigo (DC) Additional Instructions: You were seen and evaluated for dizziness in the Emergency Department. We have determined through your testing that this is very likely due to vertigo. We advise that you follow up with our physical therapy [facility] ([facility] You will need a referral from your primary care doctor to attend one of their locations. Please note there are 3 locations for these services including: [address] 4th floor: [phone]: [phone] [place] [phone] Your primary care doctor will need to fax an order through the central accounting analyst at [phone] IF you are prescribed home medications and/or you are taking over the counter medications at home - it is very important you continue to do so as prescribed / directed unless told otherwise. Follow up with your primary care provider. Return to the emergency department immediately if your symptoms worsen or if you develop any numbness, tingling, dizziness, shortness of breath, difficulty breathing, chest pain, blurry vision, loss of vision, nausea, vomiting, abdominal pain, fever, chills, back pain, or any other complaints. Please see the information below about our Patient Portal. If you are not yet enrolled in the [facility] Patient Portal, you will receive an enrollment email invitation following your visit to any [facility] setting. You may also self-enroll in the Patient Portal by visiting our website: [email or web address] The following information is required to access the Patient Portal: - Your [facility] Medical Record Number - Your personal home email address (must match what is in your electronic medical record, Registration staff can assist with this) - Name - Date of Capabilities of the Patient Portal: - Message some providers - View upcoming appointments - Access your health summary, medical history, and visit history - View current conditions and allergies - View procedure and lab results - View your medications, including guidelines, side effects, and precautions - Complete pre-appointment questionnaires requested by your provider - Ready summary reports of your office visits and procedures To access the Patient Portal Mobile [employer], follow these directions: - Search [employer] in the [employer] Store or [employer] Store - Download the [employer] - Search for [facility] - Enter your login/password Prescriptions: New cefuroxime axetil 250 mg tablet 500 mg PO BID 7 Days Qty: 28 0RF meclizine 25 mg tablet 25 mg PO DAILY PRN (Reason: dizziness) Qty: 7 0RF No Action tamsulosin [Flomax] 0.4 mg capsule 0.4 mg PO BEDTIME Qty: 10 0RF phenazopyridine [Pyridium] 100 mg tablet 200 mg PO TID Qty: 6 0RF acetaminophen [Tylenol Extra Strength] 500 mg tablet 500 mg PO Q6H PRN (Reason: fever or pain) Qty: 14 0RF naproxen 500 mg tablet 500 mg PO BID PRN (Reason: pain) 10 Days Qty: 20 0RF prednisone 20 mg tablet 40 mg PO DAILY 5 Days Qty: 10 0RF sulfamethoxazole-trimethoprim [Bactrim DS] 800-160 mg tablet 1 tab PO BID 5 Days Qty: 10 0RF phenazopyridine [Pyridium] 200 mg tablet 200 mg PO TID 3 Days Qty: 9 0RF rosuvastatin 40 mg tablet 40 mg PO DAILY levothyroxine 137 mcg tablet 137 mcg PO DAILY metformin 500 mg tablet extended release 24 hr 1,000 mg PO BID metoprolol succinate 25 mg tablet extended release 24 hr 25 mg PO DAILY valsartan-hydrochlorothiazide 160-25 mg tablet 1 tab PO DAILY fluticasone propionate 50 mcg/actuation spray,suspension intranasal gabapentin 300 mg capsule 300 mg PO DAILY omeprazole 20 mg capsule,delayed release(DR/EC) 20 mg PO DAILY estradiol 0.01 % (0.1 mg/gram) cream 1 g vaginal 3XW Referrals: Speedy Galan MD [Primary Care Provider, Medical] Interventions: ED Discharge Assessment Last Done: 07/08/25 13:02 Discharge Date/Time: 07/08/25 13:02 Print Language: Macedonian
[2025-07-08 09:40] VITALS: BP 127/79; PULSE 83; RESP 18; TEMP 36.5; O2SAT 100
--- NOTE | 2025-07-08 09:43 | PC.NURSE ---
IV access established and pt medicated per orders; PT at bedside at this time for eval
--- OUTSIDE RECORDS SUMMARY | 2025-07-08 09:49 | XMS_ITS | Patient Health Record ---
[facility] Address [address] [place] [address] Care Team Providers Care Manufacturing Leader Name Role Phone Speedy Galan MD Primary Care Provider Oseas Wyatt Unavailable [phone] Allergies Allergen (clinical drug ingredient) Drug/Non Drug Allergy documented on EMR Reaction Allergy Type Onset Date Status Iodine Unknown Drug Allergy Active Merthiolate Unknown Drug Allergy Activ e Reason For Referral No Information Medications Medication SIG (Take, Route, Frequency, Duration) Notes Start Date End Date Status Atenolol 100 MG 1 tablet Orally Once a day; Duration: 30 day(s) Active Nasonex 50 MCG/ACT 2 sprays in each nos tril Nasally Once a day; Duration: 30 day(s) Active oxyBUTYnin 3.9 MG/24HR 1 patch to skin Transdermal Two times a Week; Duration: 30 day(s) Active Diovan 320 MG 1 tablet Orally Once a day; Duration: 30 day(s) Active Levothyroxine Sodium 25 MCG 1 tablet on an empty stomach in the morning Orally Once a day; Duration: 30 day(s) Active Loratadine 10 MG 1 tablet Orally Once a day; Duration: 30 day(s) Active Aspirin 75 MG 1 tablet Orally Once a day; Duration: 30 day(s) Active Amitriptyline & Diet Manage Pr 25 MG as directed Orally Active Omeprazole 10 MG 2 capsules Orally On ce a day; Duration: 30 day(s) Active Pravastatin Sodium 10 MG 1 tablet Orally Once a day; Duration: 30 day(s) Active Problems Problem Type SNOMED Code ICD Code Onset Dates Problem Status W/U Status Risk Notes Problem Bursitis (21159139) Bursitis (727.3) Active confirmed Problem Achilles bursitis (893075859) Achilles Tendonitis Bursitis (726.71) Active confirmed Problem Calcaneal spur (33843824) Calcaneal spur (726.73) Active confirmed Problem Myositis (55828914) Myositis (729.1) Active confirmed Problem Pain in limb (96751757) Pain in Limb (729.5) Active confirmed Problem Plantar fasciitis (665771419) Plantar Fasciitis (728.71) Active confirmed Plan Of Treatment Pending Test Test Name Order Date X ray : Foot, right 3V 12/31/2012 Insurance Providers Payer Name Payer Address Payer Phone Subscriber Number Group Number Insured Name Patient Relationship to Insured Coverage Start Date Coverage End Date [facility] [address] [place] [address] [id number] JUSTIN MATTHEWS Self - patient is the insured Medical (General) History Medical History History ICD Code Arthritis back, hip, knee pain high blood pressure scarlet fever thyroid disorder chicken pox polymyalgia rheumatica Surgical History Surgery Date(Month/Year) hernia repair right knee replacement 2010
--- NOTE | 2025-07-08 12:18 | PC.NURSE ---
Pt ambulated with walker to/from BR with steady gait; pt reports dizziness with changing position from sitting to standing, but reports dizziness with ambulation improved and nearly gone after PO Meclizine gv per orders; vss; provider made aware of successful ambulation trial
[2025-07-08 12:59] VITALS: BP 145/79; PULSE 92; RESP 16; TEMP 36.7; O2SAT 100
[2025-07-08 13:02] VITALS: BP 145/79; PULSE 92; RESP 16; TEMP 36.7; O2SAT 100
== END 2025-07-08 13:02 | disposition home or self-care (01) ==
PROVIDERS: Emergency Provider Emergency Medicine; PCP Internal Medicine
DX: H81.10 Benign paroxysmal vertigo, unspecified ear (principal); N39.0 Urinary tract infection, site not specified; Z87.891 Personal history of nicotine dependence; Z91.81 History of falling
CPT/HCPCS: 36415; 80053; 81001; 83735; 84484; 85025; 87086; 93005; 96361; 96374; 97161; 99285; J0696

== ENCOUNTER → 2025-07-08 06:32 | Outpatient (BNV) | payer MEDICARE, SELFPAY | PROVIDERS: Emergency Provider Emergency Medicine; PCP Internal Medicine; Visit Provider Internal Medicine | DX: R42 Dizziness and giddiness (principal) | CPT/HCPCS: 93010 ==

== ENCOUNTER 2025-07-22 04:47 | Emergency (ER) | payer MEDICARE, SELFPAY ==
--- OUTSIDE RECORDS SUMMARY | 2025-07-21 23:59 | XMS_ITS | Continuity of Care Document ---
Author Organization [facility]her[facility] Angelito lt Address [address] [place] [address]- Care Team Providers Care Ward Assistant Name Role Phone Angelia OSCAR, Speedy Merino Primary Care Phys[id number] Date(s): 07/14/25 - 07/21/25 [facility] Adult [address] [place] [address]- Encounter Diagnosis Fall(Discharge Diagnosis) - 07/14/25 Unsteady gait(Discharge Diagnosis) - 07/14/25 BPPV (benign paroxysmal positional vertigo)(Discharge Diagnosis) - 07/14/25 UTI (urinary tract infection)(Discharge Diagnosis) - 07/14/25 Attending Physician: Mirian Stearns NP Encounter Type: Office Visit Allergies, Adverse Reactions, Alerts Substance Criticality Severity [...] 08/04/14 Mike rded influenza virus vaccine, inactivated 08/07/13 Give n influenza virus vaccine, inactivated 08/06/13 Mike rded influenza virus vaccine, inactivated 08/01/12 Mike rded SARS-CoV-2(COVID-19)mRNA-LNP vac([id number]) 07/22/24 Recorded RSV vaccine preF3, recombinant 10/30/23 Recorded pneumococcal 20-valent conjugate vaccine 05/12/23 Recorded [id number] bivalent booster vax 08/13/22 Recorded [id number] bivalent booster vax 08/10/22 Recorded Influenza Virus [...] Vaccine (oldterm) 11/12/97 Given 1Result Comment: [08/15/2017] rebekah PAULSON 2Location History: [facility] 3Result Comment: [08/11/2015] Given at [facility] on [address] in [facility] 4Admin Note: [facility] 5Admin Note: [facility] 6Admin Note: [facility], [facility] Medications Benadryl 25 mg oral tablet 50 mg, 2, tablet, By Mouth, Once, PRN as needed for motion sickness, Take 2 tablets [address] scan, # 2 tablet, 0 Refills, Soft Stop Start Date: 05/08/23 Status: Ordered Medication Dispense Status: Completed Quantity: 2.0 Unit: tablet Total Allowed Fills: 1 Fills Dispensed: 0 Centrum Silver 1 tablet, By Mouth, Daily, 0 Refills, Maintenance, 05/19/20 1:43:00 PM EDT Start Date: 05/19/20 Status: Ordered Medication Dispense Status: Completed Total Allowed Fills: 1 Fills Dispensed: 0 Claritin 10 mg oral tablet 10 mg, 1, tablet, By Mouth, Daily, 0 Refills Start Date: 03/06/06 Status: Ordered Medication Dispense Status: Completed Total Allowed Fills: 1 Fills Dispensed: 0 fluticasone 50 mcg/inh nasal spray See Instructions, Use 2 spray(s) in each nostril once daily, # 48 Gm, 10 Refills, Maintenance, 03/31/25 9:50:00 AM EDT, [facility], 90, Use 2 spray(s) in each nostril once daily, 168, cm, 02/26/25 12:34:00 EDT, Height, 127, kg, 01/27/25 9:39:00 EDT, Dry Weight Start Date: 03/31/25 Status: Ordered Medication Dispense Status: Completed Quantity: 48.0 Unit: g Total Allowed Fills: 1 Fills Dispensed: 0 hydrochlorothiazide-valsartan 12.5 mg-80 mg oral tablet 1 tablet, By Mouth, Daily, # 90 tablet, 1 Refills, Maintenance, 06/23/25 8:30:00 AM EDT, [facility], 90, Take 1 tablet by mouth once daily, 168, cm, 04/16/25 9:44:00 EDT, Height, 127, kg, 01/27/25 9:39:00 EDT, Dry Weight Start Date: 06/23/25 Status: Ordered Medication Dispense Status: Completed Quantity: 90.0 Unit: tablet Total Allowed Fills: 1 Fills Dispensed: 0 levothyroxine 0.137 mg oral tablet 1 tablet, By Mouth, Daily, # 90 tablet, 1 Refills, Maintenance, 02/24/25 10:17:00 AM EDT, [facility], 168, cm, 01/27/25 9:39:00 EDT, Height, 127, kg, 01/27/25 9:39:00 EDT, Dry Weight Start Date: 02/24/25 Status: Ordered Medication Dispense Status: Completed Quantity: 90.0 Unit: tablet Total Allowed Fills: 1 Fills Dispensed: 0 meclizine 25 mg oral tablet 1 tablet = 25 mg, By Mouth, 3 times a day, PRN for dizziness, # 30 tablet, 0 Refills, Maintenance, 07/14/25 11:12:00 AM EDT, Tablet, [facility], Partial fill upon patient request if the prescription is for a schedule II opioid drug., 167, cm, 07/14/25 10:50:00 EDT, Height, 125, kg, 07/06/25 7:28:00 EDT, Dry Weight Start Date: 07/14/25 Status: Ordered Medication Dispense Status: Completed Quantity: 30.0 Unit: tablet Total Allowed Fills: 1 Fills Dispensed: 0 MetFORMIN (Eqv-Glucophage XR) 500 mg oral tablet, extended release 4 tablet, By Mouth, Daily, # 360 tablet, 1 Refills, Maintenance, 05/21/25 6:54:00 AM EDT, [facility], 168, cm, 04/16/25 9:44:00 EDT, Height, 127, kg, 01/27/25 9:39:00 EDT, Dry Weight Start Date: 05/21/25 Status: Ordered Medication Dispense Status: Completed Quantity: 360.0 Unit: tablet Total Allowed Fills: 1 Fills Dispensed: 0 Metoprolol Succinate ER 25 mg oral tablet, extended release 0.5 tablet = 12.5 mg, By Mouth, Daily, # 45 tablet, 3 Refills, Maintenance, 07/07/24 10:54:00 AM EDT, [facility], 170.18, cm, 07/07/24 10:31:00 EDT, Height, 125.2, kg, 07/27/22 11:08:00 EDT, Dry Weight Start Date: 07/07/24 Stop Date: 07/02/25 Status: Ordered Medication Dispense Status: Completed Quantity: 45.0 Unit: tablet Total Allowed Fills: 4 Fills Dispensed: 0 One Touch Delica Lancets See Instructions, # 100 each, Refills 11, Tot. Refills 11, Maintenance, 1 box = 100 lancets dm2 e11.9 check blood sugar twice a day and as needed, 09/07/20 2:23:00 PM EDT, Supply, 168.9, cm, 09/07/2013:51:00 EDT, Height, 129, kg, 06/01/20 6:35:00 EDT, Dry Weight Start Date: 09/07/20 Status: Ordered Medication Dispense Status: Completed Quantity: 100.0 Unit: each Total Allowed Fills: 12 Fills Dispensed: 0 One Touch Ultra 2 Glucose Meter See Instructions, # 1 each, Maintenance, dm2 e11.9 check blood sugar twice a day and as needed, 09/07/20 2:23:00 PM EDT, Supply, 168.9, cm, 09/07/20 13:51:00 EDT, Height, 129, kg, 06/01/20 6:35:00 EDT, Dry Weight Start Date: 09/07/20 Status: Ordered Medication Dispense Status: Completed Quantity: 1.0 Unit: each Total Allowed Fills: 1 Fills Dispensed: 0 One Touch Ultra Test Strips See Instructions, # 100 each, Refills 11, Tot. Refills 11, Maintenance, dm2 e11.9 check blood sugartwice a day and as needed, 09/07/20 2:23:00 PM EDT, Supply, 168.9, cm, 09/07/20 13:51:00 EDT, Height, 129, kg, 06/01/20 6:35:00 EDT, Dry Weight Start Date: 09/07/20 Status: Ordered Medication Dispense Status: Completed Quantity: 100.0 Unit: each Total Allowed Fills: 12 Fills Dispensed: 0 pantoprazole 20 mg oral delayed release tablet 1 tablet = 20 mg, By Mouth, Daily, # 30 tablet, 5 Refills, Maintenance, 05/26/25 12:42:00 PM EDT, CRTablet, 168, cm, 04/16/25 9:44:00 EDT, Height, 127, kg, 01/27/25 9:39:00 EDT, Dry Weight Start Date: 05/26/25 Status: Ordered Medication Dispense Status: Completed Quantity: 30.0 Unit: tablet Total Allowed Fills: 6 Fills Dispensed: 0 rosuvastatin 40 mg oral tablet 1 tablet, By Mouth, Daily, # 90 tablet, 1 Refills, Maintenance, 07/07/25 6:23:00 PM EDT, [facility], 167, cm, 07/06/25 7:09:00 EDT, Height, 125, kg, 07/06/25 7:28:00 EDT, Dry Weight Start Date: 07/07/25 Status: Ordered Medication Dispense Status: Completed Quantity: 90.0 Unit: tablet Total Allowed Fills: 1 Fills Dispensed: 0 Vitamin D3 2000 intl units oral tablet 1 tablet = 2,000 International_Units, By Mouth, Daily, 0 Refills, Maintenance, 11/24/19 11:29:00 AM EST Start Date: 11/24/19 Status: Ordered Medication Dispense Status: Completed Total Allowed Fills: 1 Fills Dispensed: 0 Mental Status Mental Status Assessment Assessment Assessment Component Result Effecti ve Date Patient Health Questionnaire 2 item (PHQ-2) total score [Reported] 0 07/14/25 Problem List Condition Confirmation Course Effective Dates Status Health Status Informant Allergic rhinitis Confirmed Active Anemia Confirmed Active BPPV (benign paroxysmal positional vertigo) Confirmed Active Carcinoid tumor Confirmed Active Malignant [...] Confirmed Active Vitamin D Deficiency Confirmed Active 1c2018 2Workup in the past by urology negative. 3colo 2018 4Colonoscopy 2024 positive polyp, repeat 2027. 31720; repeat 2024 96739; repeat 2019 7Colonoscopy 2024 positive polyps x 2, repeat 2027. 8Colonoscopy 2021, polyp x3, repeat 2024. 9colo 01/2019; repeat recommended in 3-6 months 10Colonoscopy 2012 polyp, repeat 2017 11colo 2007 nl, repeat 2012 12CT scan 2021 Diagnosis Diagnosis Type Effective Dates Health Status Clinical Service Informant Fall Discharge Diagnosis 07/14/25 Unsteady gait Discharge Diagnosis 07/14/25 BPPV (benign paroxysmal positional vertigo) Discharge Diagnosis 07/14/25 UTI (urinary tract infection) Discharge Diagnosis 07/14/25 Vital Signs Most recent to oldest [Reference Range]: 1 Height 167 cm (07/14/25 10:50 AM) Weight 123.4 kg (07/14/25 10:50 AM) Oxygen Saturation [94-100 %] 98 % (07/14/25 10:50 AM) Pulse Rate [55-90 bpm] 105 bpm *H* (07/14/25 10:50 AM) Body Mass Index [18.5-24.99 kg/m2] 44.25 kg/m2 *>HHI* (07/14/25 10:50 AM) Blood Pressure [90-138/55-84 mm Hg] 118/ 74mm Hg (07/14/25 10:50 AM) Temperature [96.8-100.4 DegF] 97.8 DegF (07/14/25 10:50 AM) Mode of Delivery (Oxygen) Room air (07/14/25 10:50 AM) Blood pressure sites Arm, left (07/14/25 10:50 AM) Temperature Route Oral (07/14/25 10:50 AM) Weight Obtained Via Standing scale (07/14/25 10:50 AM) Note * Mariaelena Lock: PERFORM Event Display: Patient Education/Instruction Authored Date: [id number] Ambulatory Adult Visit Summary [facility] [address] [address] [place] [address] Name: JUSTIN MATTHEWS : 1945?? Visit: 07/14/2025 10:39?? Ambulatory Visit Instructions ?? Your Care Team Primary Care Provider Speedy Galan MD? This Visit Provider Mirian Stearns NP Vitals Signs Temperature: 97.8 DegF Height: 167 cm Pulse Rate:??105 bpm??High Weight: 123.4 kg Systolic Blood Pressure: 118 mm Hg Body Mass Index:??44.25 kg/m2??Critical Diastolic Blood Pressure: 74 mm Hg Body surface area: 2.39 Oxygen Saturation: 98 % ?? What to do next Follow-Up Appointments Follow Up with??Speedy Galan MD Additional Information: as scheduled Future Orders Lipid Panel - Routine, Once, 02/19/25 3:00:00 EDT, Future Order, [facility], Blood?? Thyroid Panel - Routine, Once, 02/19/25 3:00:00 EDT, Future Order, [facility], Blood?? Comprehensive Metabolic Panel - Routine, Once, 02/19/25 3:00:00 EDT, Future Order, [facility], Blood?? Hemoglobin A1C (Monitoring) - Routine, Once, 02/19/25 3:00:00 EDT, Future Order, [facility], Blood?? Microalbumin Urine (Urine Microalbumin) - Routine, Once, 02/19/25 3:00:00 EDT, [facility], Urine?? CBC - Routine, Once, 02/19/25 3:00:00 EDT, Future Order, [facility], Blood?? Ova and Parasite Exam - Routine, Once, 11/18/24 13:33:00 EST, Order for Today, [facility], Stool?? Medications The list below reflects the information in our records and provided by you today along with any changes made during this visit. Please continue your medications until treatment is completed or stopped by your provider. If this is different from the information you have or there are other questions,please contact the prescribing provider. What How Much When Instructions Unchanged Cholecalciferol (Vitamin D3 2000 intl units oral tablet) 1 tab(s) Oral Daily Unchanged DiphenhydrAMINE (Benadryl 25 mg oral tablet) 2 tab(s) Oral Once as needed for as needed for motion sickness Special Instructions: Take 2 tablets [address] scan Ordering Physician: Jackelyn Solano MD ?? Unchanged Durable Medical Equipment (One Touch Delica Lancets) See instructions Special Instructions: 1 box = 100 lancets
dm2 e11.9
check blood sugar twice a day and as needed Ordering Physician: Jinny RAMSEY, Mirian Rider ?? Unchanged Durable Medical Equipment (One Touch Ultra 2 Glucose Meter) See instructions Special Instructions: dm2 e11.9
check blood sugar twice a day and as needed Ordering Physician: Jinny RAMSEY, Mirian Rider ?? Unchanged Durable Medical Equipment (One Touch Ultra Test Strips) See instructions Special Instructions: dm2 e11.9
check blood sugar twice a day and as needed Ordering Physician: Jinny RAMSEY, Mirian Rider ?? Unchanged Fluticasone Nasal (fluticasone 50 mcg/ inh nasal spray) See instructions Special Instructions: Use 2 spray(s) in each nostril once daily Ordering Physician: Speedy Galan MD ?? Unchanged Hydrochlorothiazide-Valsartan (hydrochlorothiazide-valsartan 12.5 mg- 80 mg oral tablet) 1 tab(s) Oral Daily Ordering Physician: Speedy Galan MD Unchanged Levothyroxine (levothyroxine 0.137 mg oral tablet) 1 tab(s) Oral Daily Ordering Physician: Speedy Galan MD Unchanged Loratadine (Claritin 10 mg oral tablet) 1 tab(s) Oral Daily Unchanged Meclizine (meclizine 25 mg oral tablet) 1 tab(s) Oral 3 times a day as needed for for dizziness Ordering Physician: Jinny RAMSEY, Mirian Rider Pickup at [facility] Unchanged Metformin (MetFORMIN (Eqv-Glucophage XR) 500 mg oral tablet, extended release) 4 tab(s) Oral Daily Ordering Physician: Speedy Galan MD Unchanged Metoprolol (Metoprolol Succinate ER 25 mg oral tablet, extended release) 0.5 tab(s) Oral Daily Duration: 90 Days Ordering Physician: Speedy Galan MD Unchanged Multivitamin With Minerals (Centrum Silver) 1 tab(s) Oral Daily Unchanged Pantoprazole (pantoprazole 20 mg oral delayed release tablet) 1 tab(s) Oral Daily Ordering Physician: Hugo PALOMINO Amy M Unchanged Rosuvastatin (rosuvastatin 40 mg oral tablet) 1 tab(s) Oral Daily Ordering Physician: Speedy Galan MD Pharmacy Information [facility]: [address] [place] [id number] [phone] Medications and Immunizations Administered Medications Given During Visit No medications given during this visit.?? Allergies (NKA means No Known Allergies) iodinated radiocontrast dyes (Persistent Severe)??huge hives traMADOL (Persistent Severe)??breathing difficulty Education Materials Below is the list of Educational Leaflet Providered with your Visit summary. [employer] Patient Education - Benign Paroxysmal Positional Vertigo?? Common Emergency Awareness Tips IS IT A STROKE? Act FAST and Check for these signs: FACE Does the face look uneven? ARM Does one arm drift down? SPEECH Does their speech sound strange? TIME Call at any sign of stroke ?? Heart Attack Signs Chest discomfort: Most heart attacks involve discomfort in the center of the chest and lasts more than a few minutes, or goes away and comes back. It can feel like uncomfortable pressure, squeezing, fullness or pain. Discomfort in upper body: Symptoms can include pain or discomfort in one or both arms, back, neck, jaw or stomach. Shortness of breath: With or without discomfort. Other signs: Breaking out in a cold sweat, nausea, or lightheaded. Remember, MINUTES DO MATTER. If you experience any of these heart attack warning signs, call to get immediate medical attention! ?? Smoking can increase your chances of developing chronic health problems and can cause harmful effects to other family members in your house. If you smoke, you are strongly encouraged to quit. Please call [facility] at [phone] or [phone] ([phone]) or log in to [email or web address] for referrals to smoking cessation programs. ?? The National Suicide Prevention Hotline is available 04/06 if you or someone you know needs to find a reason to keep living. By calling 0-389-540-qhcm (6857) you'll be connected to a skilled, trained counselor at a crisis center in your area. [facility] Portal You can view and manage your care through the patient portal or by using a health care tiana of your choosing. [employer] is a website that allows you to securely view your medical information including your hospital discharge summary, office visit summaries, medications and follow-up visits. You can also request appointments, renew medications, and request access to your medical information using a health care tiana of your choosing, or just ask a question. You can enroll at [email or web address] or register during your next office visit. [facility], in keeping with [facility] guidance, no longer requires face masks for staff, patientsor visitors in most situations. Similiar to time spent indoors at other locations, there is the chance that you were exposed to repiratory viruses during your time with us (such as flu or COVID-19). If you develop symptoms concerning for a viral respiratory infection, please seek testing (and treatment if indicated) from your medical provider or home test kit. ?? Disclaimer: The information provided is of a general nature and is intended to be used in conjunction with the recommendations and advice of your health care practitioner. Every effort has been made to ensure that the information provided is accurate and complete at the time it is provided to you however, as your needs change, or, as new information becomes available, different or additional instructions may be required. ?? If you have questions, please consult with your primary care provider or pharmacist, as appropriate. This information is not intended to serve as substitution for assessment and evaluation by a qualified health care provider. If you do not have a primary care provider, you may find a [facility] provider by calling [facility] Link at [phone]. * Jinny RAMSEY, Mirian Rider: PERFORM Event Display: Patient Education Leaflets Authored Date: [id number] Benign Paroxysmal Positional Vertigo ?? [id number] Benign Paroxysmal Positional Vertigo Benign paroxysmal positional vertigo (BPPV) is a common condition. You feel as if the room is spinning after changing position, moving your head quickly, or even just rolling over in bed. Vertigo is a false feeling of motion plus disorientation that makes it seem as if the room is spinning. A vertigo attack may cause sudden nausea, vomiting, and heavy sweating. Severe vertigo causes aloss of balance. You may even fall down. Vertigo is caused by a problem with the inner ear. The inner ear is located behind the middle ear. It is a part of the balance center of the body. Vertigo can happen when small calcium stones move into an area of your inner ear called the semicircular canal. This may happen as a result of aging, head injury, or disease of the inner ear. Once that happens, moving your head in certain ways may cause the particles to stimulate the inner ear. This creates the feeling of vertigo. An episode of vertigo lasts only a few seconds to minutes. Once you are over the first episode of vertigo, it may never return. Sometimes symptoms return off and on for several weeks or longer. BPPV is treatable. The Deneen maneuver is a simple treatment for the common cause of vertigo. Your doctor may try to put the calcium particles back in their correct position by having you do a series of head movements. Your doctor may have you do other types of maneuvers, depending on which canals the crystals are in. Home care Follow these guidelines when caring for yourself at home: ??? Rest quietly in bed if your symptoms are severe. Change position slowly. There is usually one position that will feel best. This might belying on one side or lying on your back with your head slightly raised on pillows. Until you have no symptoms, you are at a higher risk of falling. Let someone help you when you get up. Get rid of home hazards such as loose electrical cords and throw rugs. Don???t walk in unfamiliar areas that aren't lighted. Use night-lights in bathrooms and kitchen areas. ??? Don't drive or work with dangerous machinery for 1 week after symptoms go away, or as directed by your doctor. This is in case symptomsreturn suddenly. ??? Try repositioning maneuvers at home if your doctor instructs you to do so. ?? Follow-up care Follow up with your doctor or an ear, nose, and throat specialist (ENT or origination specialist), or as directed. Tell your doctor about any ringing in your ear or hearing loss. If you had a CT or MRI scan, a specialist will review it. You'll be told of any new findings that may affect your care. ?? When to contact your doctor Contact your doctor right away if: ??? Your vertigo gets worse. ??? You have repeated vomiting. ???You have weakness that gets worse. ??? You have trouble hearing. ??? You have a fever of 100.4??F (38??C) or higher, or as directed by your doctor. ?? Call 911 Call 911 right away if: ??? You faint. ??? You have a severe headache, confusion, or abnormal drowsiness. ??? You have weakness of an arm or leg or one side of the face. ??? You have trouble??with speech or vision. ??? You have trouble walking. ??? You have a seizure. ??? You have a fast heart rate. ??? You have chest pain. ??? You are short of breath. ?? Last Reviewed Date: 2025 00:00:00 ?? [id number] [employer]. All rights reserved. This information is not intended as a substitute for professional medical care. Always follow your healthcare professional's instructions. ?? Patient Care team information Care Team Personnel Name: Speedy Lara RN Position: [facility] RN Member Role: Primary Care Nurse Name: Speedy Galan MD Position: [facility] Physician - Primary Care Member Role: PCP Address: [address] [place] [address]- Telecom: Care Team Related Persons Name: ITA MATTHEWS Insurance Providers Guarantor name: JUSTIN YUANLANTE Health Plan Information #: 1 Payer: [employer] PPO Payer Identifier: NA Member Number: [id number] Group Number: [id number] Subscriber Identifier: [id number] Relationship to Subscriber: self Coverage Type: Medicare PPO Coverage Verification Date: NA Telecom: NA Address: NA
[2025-07-22] VITALS (10 sets, daily range): BP systolic 125–164; BP diastolic 63–90; PULSE 84–118; RESP 16–20; TEMP -17.7–36.8; O2SAT 95–99; BMI 37.4
--- NOTE | 2025-07-22 05:07 | ECG_ITS ---
Test Reason : WEAKNESS Blood Pressure : */* mmHG Vent. Rate : 84 BPM Atrial Rate : 84 BPM P-R Int : 170 ms QRS Dur : 98 ms QT Int : 398 ms P-R-T Axes : 35 -23 26 degrees QTcB Int : 470 ms Normal sinus rhythm Cannot rule out Anterior infarct , age undetermined Abnormal ECG When compared with ECG of 08-Jul-2025 06:45, No significant change was found Referred By: Meagan Bach Electronically Signed By: SABIHA WALLACE MD
[2025-07-22 05:43] LABS: MANUAL DIFF FLAG NO
[2025-07-22 05:45] LABS: Hematocrit 37.2 % (37.0-47.0); Hemoglobin 12.4 g/dl (12.0-16.0); Imm Gran Abs Auto 0.02 X10*3/uL (0.00-0.03); Imm Gran Pct Auto 0.3 % (0.0-0.4); Lymphocytes Absolute Auto 2.0 X10*3/uL (1.2-4.9); Mean Corpuscular HGB Conc 33.3 g/dl (31.0-35.0); Mean Corpuscular Hemoglobin 28.1 pg (27.0-33.0); Mean Corpuscular Volume 84.2 fL (80.0-98.0); NRBC Abs Auto 0.000 X10*3/uL (0.0-0.012); NRBC Pct Auto 0.0 /100WBC (0.0-0.2); Platelet Count 211 X10*3/uL (160-400); Red Blood Count 4.42 X10*6/uL (4.20-5.50); White Blood Count 6.2 X10*3/uL (4.8-10.8)
[2025-07-22 05:53] LABS: INTERNATIONAL NORM RATIO 1.0 (0.9-1.1); Prothrombin Time 11.2 SEC (10.9-12.4)
[2025-07-22 05:59] LABS: Alanine Aminotransferase 25 U/L (0-31); Albumin Level 4.4 g/dL (3.5-5.0); Alkaline Phosphatase 79 U/L (39-117); Anion Gap 15 (12-20); Aspartate Amino Transferase 36 U/L (5-31); Blood Urea Nitrogen 18 mg/dL (9-16); Calcium 9.7 mg/dL (8.4-10.2); Carbon Dioxide 25 mmol/L (22-29); Chloride 107 mmol/L (96-108); Creatinine Clr Calc Pharmacy 67.2; Estimated Glomerular Filt Rate 60; Magnesium 1.6 mg/dL (1.6-2.6); Potassium 3.6 mmol/L (3.3-5.1); Sodium 143 mmol/L (135-145); Total Protein 6.9 g/dL (6.5-8.0)
[2025-07-22 06:02] LABS: IDNOW Serial# 55D5AD1C; Influenza B2 Negative (Negative)
[2025-07-22 06:03] LABS: COVID-19 Test Negative (Negative); IDNOW Serial# 08D9AD1C
[2025-07-22 06:07] LABS: Troponin-I High Sensitivity < 2.7 ng/L (<3.5-17.0)
--- NOTE | 2025-07-22 06:18 | ED_ITS ---
HPI - Dizziness General Chief Complaint: Weakness Stated Complaint: Dizziness Time Seen by Provider: 07/22/25 04:49 Source: patient and EMS Mode of arrival: EMS Limitations: no limitations History of Present Illness ED Provider: Dr. Meagan Bach HPI Narrative: 80-year-old female with a history of hypertension, [id number] diabetes, hypothyroidism and chronic back pain presenting with unsteady gait and dizziness that has been ongoing for several weeks now. She was seen about 2 weeks ago in the emergency department after a fall with facial trauma. Was found to have BP P the and was discharged with meclizine. She admits she has been taking the meclizine as well as vestibular rehab which has been helping her symptoms however, she woke this morning with worsening dizziness and feeling ?like crap?. No reported fever. Denies changes in this chronic dizziness. No headaches, vision changes, hearing changes, neck pain, chest pain, difficulty breathing, abdominal pain, nausea, vomiting, bowel changes or urinary complaints. Related Data Home Medications ?Medication ?Instructions ?Recorded ?Confirmed estradiol 0.01% (0.1 mg/gram) 1 g vaginal 3XW 02/19/23 vaginal cream fluticasone propionate 50 spray intranasal 02/19/23 mcg/actuation nasal spray,suspension gabapentin 300 mg capsule 300 mg PO DAILY 02/19/23 levothyroxine 137 mcg tablet 137 mcg PO DAILY 02/19/23 metformin 500 mg tablet,extended 1,000 mg PO BID 02/19 release 24 hr metoprolol succinate 25 mg 25 mg PO DAILY 02/19/23 tablet,extended release 24 hr omeprazole 20 mg capsule,delayed 20 mg PO DAILY release rosuvastatin 40 mg tablet 40 mg PO DAILY 02/19/23 valsartan 160 1 tab PO DAILY 02/19/23 mg-hydrochlorothiazide 25 mg tablet Previous Rx's ?Medication ?Instructions ?Recorded phenazopyridine 100 mg tablet 200 mg (2 x 100 mg) PO T ID 6 doses 06/04/22 (Pyridium) #6 tabs tamsulosin 0.4 mg capsule (Flomax) 0.4 mg PO BEDTIME # 10 caps 06/04/22 acetaminophen 500 mg tablet 500 mg PO Q6H PRN fever or pain 12/28/22 (Tylenol Extra Strength) #14 tabs naproxen 500 mg tablet 500 mg PO BID PRN pain 10 da ys #20 12/28/22 tabs prednisone 20 mg tablet 40 mg (2 x 20 mg) PO DAILY 5 days 12/28/22 #10 tabs phenazopyridine 200 mg tablet 200 mg PO TID 3 days #9 tabs 06/27/23 (Pyridium) sulfamethoxazole 800 1 tab PO BID 5 days #10 tabs 06/27/23 mg-trimethoprim 160 mg tablet (Bactrim DS) cefuroxime axetil 250 mg tablet 500 mg (2 x 250 mg) PO BID 7 days 07/08/25 #28 tabs meclizine 25 mg tablet 25 mg PO DAILY PRN dizziness #7 07/08/25 tabs Allergies Allergy/AdvReac Type Severity Reaction Status Date / Time iodine Allergy Hives Verified 07/22/25 04:56 lactose Allergy Abdominal Verified 07/22/25 11:03 Pain tramadol Allergy Numbness Verified 07/22/25 04:56 Review of Systems 2 Review of Systems: As per HPI, full review of systems performed and negative but for the above mentioned pertinent positives and negatives. [facility] Social History Social History Alcohol intake: never Patient Tobacco Use Status: Former Tobacco user Smoked in Last 30 Days: No Use of substances other than those prescribed or required for medical reasons: No Advance Directives: No Advance Directives Information Provided: Yes Physical Exam 2 Exam: Exam: GENERAL: Chronically ill-appearing, conversant, no acute distress. SKIN: Normal skin color for ethnicity, warm, dry, no rashes noted. HEENT: Normocephalic, atraumatic, no stridor, posterior oropharynx nonerythematous, EOMI. NECK: Soft, supple, full ROM, midline structures nontender, no step-offs, no deformities, no lymphadenopathy. CHEST: Heart regular rate and rhythm, no murmurs, symmetric chest rise and fall. PULMONARY: Clear to auscultation bilaterally, no labored breathing, no wheezes/rhales/ rhonchi. ABDOMINAL: Soft, nondistended, nontender, positive bowel sounds in all quadrants. : Deferred. MUSCULOSKELETAL: Normal tone, full range of motion, no deformities, no peripheral edema. NEURO: Alert and oriented to person, CN II through XII intact, no nystagmus noted on exam, moves all 4 extremities equally, unsteady gait, no focal neurologic deficits. PSYCHIATRIC: Flat affect, fluid speech, appropriate demeanor. Vital Signs: Vital Signs: Last Vital Signs Temp 97.6 F 07/22/25 13:24 Pulse 96 07/22/25 14:03 Resp 18 07/22/25 13:24 BP 159/72 H 07/22/25 14:03 Pulse Ox 99 07/22/25 13:24 O2 Del Method Room Air 07/22/25 13:24 BMI result Body Mass Index 37.4 Course Course Course Narrative: 6:24 AM 07/22/2025 (Dr. Meagan Bach, D.O.) Time: 06:24 Date: 07/22/25 Provider: Meagan Bach, DO Patient in physician observation for case management needs. No acute events reported overnight.? No current issues or complaints. VS stable. Patient is pending PT/CM eval. Will continue to monitor. Time: 08:09 Date: 07/22/25 Provider: GEORGETTE Sandy Patient in physician observation for case management needs. No acute events reported overnight.? No current issues or complaints. VS stable. med rec pending. Patient is pending PT/CM eval. Will continue to monitor. 07/22/2025 1432 Cristela Cordova PA-C ---> Observation ended. Patint discharged to [facility]. Patient should have neurolgy and psychirty follow up arranged on an outpatient basis for dementia work up. Medications Administered Discontinued Medications Generic Name Dose Route Start Last Admin Trade Name Freq PRN Reason Stop Dose Admin Acetaminophen 975 mg 07/22/25 05:05 07/22/25 05:17 Acetaminophen 325 Mg Tablet PO 07/22/25 05:06 975 mg ONCE ONE Administration Sodium Chloride 1,000 mls @ 999 mls/hr 07/22/25 12:00 07/22/25 14:00 Ns IV 07/22/25 13:00 Infused .Q1H1M LIANG Infusion Meclizine HCl 50 mg 07/22/25 05:05 07/22/25 05:17 Meclizine Hcl 25 Mg Tablet PO 07/22/25 05:06 50 mg ONCE ONE Administration Medical Decision Making Medical Decision Making [facility] Narrative: Patient presents today with a chief complaint of dizziness. Differential diagnosis is extremely broad and includes posterior circulation deficits causing vestibular basilar symptoms, anemia, hypovolemia, middle or inner ear problems, intracranial abnormality such as stroke bleed or tumor, electrolyte abnormalities, cardiac arrhythmia, among many others. This patient does not have any focal neurological findings at this time. She was recently diagnosed with BPPV and I believe this is going to be an exacerbation of that. Her workup today has been reassuring. No evidence of significant electrolyte disturbance, renal dysfunction, dehydration, ischemia on EKG or abnormal vital signs. She is rather unsteady trying to go to the bathroom today. I feel that she will need physical therapy and case management. Sign out to oncoming provider pending case management, Physical therapy evaluations and final disposition. Differential Diagnosis Differential Diagnoses: The differential diagnosis associated with the presentation includes (as above) Admission/Observation Consideration of admission/observation: Escalation of care including admission/observation considered Lab Data [facility] Lab Attestation statement: I reviewed the patient's lab results. 07/22/25 05:34 07/22/25 05:34 Labs: Lab Results 07/22/25 07/22/25 Range/Units 05:34 06:37 WBC 6.2 (4.8-10.8) X10*3/uL RBC 4.42 (4.20-5.50) X10*6/uL Hgb 12.4 (12.0-16.0) g/dl Hct 37.2 (37.0-47.0) % MCV 84.2 (80.0-98.0) fL MCH 28.1 (27.0-33.0) pg MCHC 33.3 (31.0-35.0) g/dl RDW 14.2 (11.0-16.0) % Plt Count 211 (160-400) X10*3/uL MPV 9.7 (9.4-12.3) fL Immature Gran % (Auto) 0.3 (0.0-0.4) % Neut % (Auto) 55.9 (45-73) % Lymph % (Auto) 31.5 (20-40) % [place] % (Auto) 7.4 (2-11) % Eos % (Auto) 3.6 (0-4) % Baso % (Auto) 1.3 (0-2) % Lymph # (Auto) 2.0 (1.2-4.9) X10*3/uL [place] # (Auto) 0.5 (0.1-1.2) X10*3/uL Eos # (Auto) 0.2 (0.0-0.4) X10*3/uL Baso # (Auto) 0.1 (0.0-0.2) X10*3/uL Abs Immat Gran (auto) 0.02 (0.00-0.03) X10*3/uL Absolute Neuts (auto) 3.5 (2.0-8.3) x10*3/uL Absolute Nucleated RBC 0.000 (0.0-0.012) X10*3/uL Nucleated RBC % (auto) 0.0 (0.0-0.2) /100WBC PT 11.2 (10.9-12.4) SEC INR 1.0 (0.9-1.1) Sodium 143 (135-145) mmol/L Potassium 3.6 (3.3-5.1) mmol/L Chloride 107 (96-108) mmol/L Carbon Dioxide 25 (22-29) mmol/L Anion Gap 15 (12-20) BUN 18 H (9-16) mg/dL Creatinine 0.90 (0.5-1.4) mg/dL Estim Creat Clear Calc 67.2 Estimated GFR 60 Random Glucose 167 H (60-115) mg/dL Calcium 9.7 (8.4-10.2) mg/dL Magnesium 1.6 (1.6-2.6) mg/dL Total Bilirubin 0.6 (0.0-1.0) mg/dL AST 36 H (5-31) U/L ALT 25 (0-31) U/L Alkaline Phosphatase 79 (39-117) U/L Troponin I High Sens < 2.7 (<3.5-17.0) ng/L Total Protein 6.9 (6.5-8.0) g/dL Albumin 4.4 (3.5-5.0) g/dL Urine Color Yellow Urine Appearance Cloudy Urine pH 5.0 (5.0-9.0) Ur Specific [place] 1.020 (1.005-1.025) Urine Protein 30 (1+) H (Neg-Trace) mg/dL Urine Glucose (UA) Negative (Negative) mg/dL Urine Ketones Trace (Negative) mg/dL Urine Blood Negative (Negative) Urine Nitrite Negative (Negative) Ur Leukocyte Esterase Large (3+) H (Negative) Urine RBC 0-2 (0-2) /HPF Urine WBC 11-20 (0-5) /HPF Ur Squamous Epith Cells 6-10 (0-2) /HPF Urine Bacteria Trace (None Seen) Hyaline Casts 0-2 (0-2) /LPF COVID-19 (GEO) Negative (Negative) COVID-19 Clin Com See Note Influenza Type A (RUSSEL) Negative (Negative) Influenza Type B (RUSSEL) Negative (Negative) Influenza A & B Note See Note Independent Interpretation I performed an independent interpretation of an: EKG Interpretation: My independent interpretation of the ECG reveals normal sinus rhythm with rate of 84, leftward axis, normal intervals, no ST elevations or depressions to suggest ischemic changes, relatively unchanged from previous on 07/08/2025. Independent Historian Clinical information obtained from an independent historian. History obtained from or confirmed by: EMS External Record Review External record reviewed: Inpatient record Prescription Management I considered prescription management with: Other (Meclizine) Chronic Conditions Patient?s care impacted by: Diabetes and Hypertension Discharge Plan Discharge Clinical Impression: Unsteady gait when walking, Vertigo Patient Disposition: Xfer Inpatient Rehab Fac Transfer Details: TO: [facility] Instructions: Vertigo (DC) Prescriptions: No Action tamsulosin [Flomax] 0.4 mg capsule 0.4 mg PO BEDTIME Qty: 10 0RF phenazopyridine [Pyridium] 100 mg tablet 200 mg PO TID Qty: 6 0RF acetaminophen [Tylenol Extra Strength] 500 mg tablet 500 mg PO Q6H PRN (Reason: fever or pain) Qty: 14 0RF naproxen 500 mg tablet 500 mg PO BID PRN (Reason: pain) 10 Days Qty: 20 0RF prednisone 20 mg tablet 40 mg PO DAILY 5 Days Qty: 10 0RF cefuroxime axetil 250 mg tablet 500 mg PO BID 7 Days Qty: 28 0RF meclizine 25 mg tablet 25 mg PO DAILY PRN (Reason: dizziness) Qty: 7 0RF sulfamethoxazole-trimethoprim [Bactrim DS] 800-160 mg tablet 1 tab PO BID 5 Days Qty: 10 0RF phenazopyridine [Pyridium] 200 mg tablet 200 mg PO TID 3 Days Qty: 9 0RF rosuvastatin 40 mg tablet 40 mg PO DAILY levothyroxine 137 mcg tablet 137 mcg PO DAILY metformin 500 mg tablet extended release 24 hr 1,000 mg PO BID metoprolol succinate 25 mg tablet extended release 24 hr 25 mg PO DAILY valsartan-hydrochlorothiazide 160-25 mg tablet 1 tab PO DAILY fluticasone propionate 50 mcg/actuation spray,suspension intranasal gabapentin 300 mg capsule 300 mg PO DAILY omeprazole 20 mg capsule,delayed release(DR/EC) 20 mg PO DAILY estradiol 0.01 % (0.1 mg/gram) cream 1 g vaginal 3XW Referrals: [facility] [Outside] Referral Note: [address] [place] [address] Speedy Galan MD [Primary Care Provider, Medical] Print Language: Colombian
--- NOTE | 2025-07-22 06:22 | PC.NURSE ---
pt requesting to use the anteroom for BM. assist to bathroom with cane for safety. pt was very unsteady while walking, reporting dizziness upon standing but felt better after a few steps. MD kang
[2025-07-22 06:45] LABS: Appearance Urine Cloudy; Glucose Urine UA Negative (Negative); PH 5.0 (5.0-9.0); Specific Gravity - Urine 1.020 (1.005-1.025); UMIC TRIGGER UACC YES
[2025-07-22 07:00] LABS: UACC Culture Trigger YES
--- NOTE | 2025-07-22 08:33 | PC.NURSE ---
PT AMB WITH WALKER TO [facility]
--- NOTE | 2025-07-22 09:03 | MHC.CM.ED ---
Addendum entered by Yeny Bryant 07/22/25 10:28: [facility] and [facility] are not contracted with patient's insurance. Referral broadcasted to all facilities within 15 miles of patient's home to all facilities that are contracted with [employer]. [facility], [facility], [place], [facility], [facility] and [facility] are able to offer a bed. Sharon at [facility] and [facility] are still reviewing. Spoke with patient and Chandu. Accept bed at [facility]. [facility] made aware and in the process of obtaining insurance auth. Original Note: Received case management consult overnight. Patient came to the ER due to a fall and neck pain. Work up essentially negative. Phsyical therapy eval completed. Short term rehab is recommended. Received telephone call from patient's , Chandu. Chandu is very concerned that this is 3rd ER visit for patient due to falls in the past couple of weeks and nothing is being done. T/W explained PT eval was completed. Recommendations explained. Chandu feels that is an appropriate d/c plan for patient. Choices: 1)[facility] 2)[facility]. Met with patient in regards to discharge planning. Patient verifies she lives with her , was using a cane for mobility and has an outpatient physical therapy appointment scheduled at [facility] in [place], tomorrow 07/23 at 11am. PCP verified. Patient states she has a HCP at [facility]. Copy of HCP requested by T/W from [facility] [place]. Patient is aware of Chandu's concerns and is agreeable to referrals to [facility] and [facility]. [facility]. Continue to monitor for d/c needs.
--- NOTE | 2025-07-22 11:03 | PC.NURSE ---
Assumed care of patient. Pt is awaiting Pt/CM, sts becomes dizzy when ambulating. Pt uses a cane/walker to ambulated. A+Ox4, calm, cooperative. RR even and unlabored, denies CP or SOB. Pt denies any pain at this time.
--- NOTE | 2025-07-22 11:30 | PC.NURSE ---
called pharmacy to do a med/rec
--- NOTE | 2025-07-22 13:16 | MHC.CM.ED ---
Addendum entered by Yeny Bryant 07/22/25 14:10: Received return telephone call from patient's , Chandu. Chandu accepts bed at [facility]. Chandu is questioning if psych consult was completed while patient was in ER. T/W questioned why a psych consult would be needed. Chandu stated patient has a history of dementia and has been falling and wants to make sure the medical and psychological are covered . T/W explained Psych consult would not be appropriate in the ER due to falls. Psych consult would be ordered in patient was SI/HI or if patient was exhibiting behaviors d/t dementia. Also explained falling does not indicate a psych consult would be needed. Chandu requested neuro consult. Again explained neuro consult in the ER would not be appropriate for a patient with a history of dementia. Also explained outpatient follow up for neurology and psych would be the appropriate protocol for a patient with dementia. Chandu verbazlied understanding. Matthew BAÑUELOS booked for 330pm. Med nec with chart. Patient, Chandu, Reji RN and Cristela PALOMINO aware. Original Note: Received telephone call from patient's , Chandu, concerned about reviews from [facility]. T/W offered for liaison to speak to Chandu. Chandu agreeable. List of other facilities that have offered a bed provided again. Received notification from [facility] that insurance auth has been obtained. Facility spoke with Chandu and offered for him to tour. Attempted to reach Chandu at home ([phone]) and via cell ([phone]). Left message requesting return call to discuss d/c plan. Continue to monitor for d/c needs.
--- NOTE | 2025-07-22 14:24 | PC.NURSE ---
Called report to [facility]. Report accepted. Pt is going to be picked up around 3:30pm.
== END 2025-07-22 16:11 ==
PROVIDERS: Emergency Provider Emergency Medicine; PCP Internal Medicine
DX: R26.81 Unsteadiness on feet (principal); R42 Dizziness and giddiness; R53.1 Weakness; E11.9 Type 2 diabetes mellitus without complications; E03.9 Hypothyroidism, unspecified; Z79.899 Other long term (current) drug therapy; Z03.818 Encounter for observation for suspected exposure to other biological agents ruled out
CPT/HCPCS: 80053; 81001; 83735; 84484; 85025; 85610; 87086; 87502; 87635; 93005; 96360; 96361; 97162; 99284; 99285

== ENCOUNTER → 2025-07-22 05:07 | Outpatient (BNV) | payer MEDICARE, SELFPAY | PROVIDERS: Emergency Provider Emergency Medicine; PCP Internal Medicine; Visit Provider Internal Medicine Cardiovascular Disease | DX: R94.31 Abnormal electrocardiogram [ECG] [EKG] (principal); R53.1 Weakness; R42 Dizziness and giddiness | CPT/HCPCS: 93010 ==

== ENCOUNTER 2025-07-24 10:26 | Emergency (ER) | payer MEDICARE, SELFPAY ==
--- NOTE | ~2025-07-24 | CT_ITS ---
EXAMINATION: CT HEAD WITHOUT IV CONTRAST HISTORY: dizziness, diff walking. TECHNIQUE: Unenhanced helical CT of the head was performed per standard departmental protocol. Coronal and sagittal reformats of the head were also evaluated. One or more of the following techniques was used for dose reduction: Automated exposure control, adjustment of the mA and/or kV according to patient size, use of iterative reconstruction technique. DLP: 678 mGy-cm COMPARISON: There are no prior studies available for comparison. FINDINGS: BRAIN: There is diffuse prominence of the ventricular system and cortical sulci, consistent with atrophy. Periventricular and subcortical white matter hypodensities are noted which are nonspecific, but often seen in the setting of small vessel ischemic disease. There is no mass effect or midline shift. No intra- or extra-axial fluid collections are identified. SINUSES: The visualized paranasal sinuses are clear. The mastoid air cells and middle ear cavities are well pneumatized. ORBITS: The visualized orbits are unremarkable. BONES/SOFT TISSUES: The extracranial soft tissues are unremarkable. The calvarium is intact. No suspicious lytic or sclerotic lesions. CT/CT head/brain wo IV con IMPRESSION: No evidence of intracranial hemorrhage. Electronically signed by: Khalif Espino MD 07/24/2025 01:06 PM EDT
[2025-07-24 10:40] VITALS: BP 126/57; BP 160/100; PULSE 88; PULSE 96; RESP 16; TEMP 36.8; O2SAT 96; BMI 33.1
[2025-07-24 10:47] VITALS: BP 126/57; PULSE 96; RESP 16; TEMP 36.8; O2SAT 96
--- NOTE | 2025-07-24 11:05 | ECG_ITS ---
Test Reason : dizziness Blood Pressure : */* mmHG Vent. Rate : 82 BPM Atrial Rate : 82 BPM P-R Int : 172 ms QRS Dur : 94 ms QT Int : 402 ms P-R-T Axes : 46 -20 22 degrees QTcB Int : 469 ms Normal sinus rhythm Possible Inferior infarct (cited on or before 22-Jul-2025) Abnormal ECG When compared with ECG of 22-Jul-2025 05:16, Minimal criteria for Anterior infarct are no longer Present Referred By: Katerine Holguin Electronically Signed By: SABIHA WALLACE MD
--- NOTE | 2025-07-24 11:11 | ED_ITS ---
HPI - Dizziness General Chief Complaint: Dizziness Stated Complaint: VERTIGO FROM DR ALLEN PER EMS Time Seen by Provider: 07/24/25 11:02 Source: patient, EMS and old records reviewed Mode of arrival: EMS Limitations: no limitations History of Present Illness ED Provider: TORIE VALDERRAMA Narrative: 80 yo female with PMH of hypothyroidism, chronic back pain, vertigo, HTN, DM, GERD, UTIs not on blood thinners here again with c/o dizziness. She was just seen here and referred to [facility] 07/22 with visit on 07/08 for same she did not stay at rehab long. She states she has tried CORE therapy, meclizine and it just keeps happening. It is worse when she turns to the left. She has no recent head trauma, no fevers. She does report that she seems her symptoms started after dental work on the R side 06/19. MD elicited complaint: dizziness Pertinent past history: BPPV Onset (ago): month(s) (1+) Timing: sudden onset and intermittent Severity: moderate Description: room spinning Context: change in body position History of similar symptoms: Yes Exacerbating factors: movement/ambulation and change in body position Relieving factors: remaining still Associated symptoms: nausea Related Data Home Medications ?Medication ?Instructions ?Recorded ?Confirmed estradiol 0.01% (0.1 mg/gram) 1 g vaginal 3XW 02/19/23 vaginal cream gabapentin 300 mg capsule 300 mg PO DAILY 02/19/23 levothyroxine 137 mcg tablet 137 mcg PO DAILY 02/19/23 omeprazole 20 mg capsule,delayed 20 mg PO DAILY release rosuvastatin 40 mg tablet 40 mg PO DAILY 02/19/23 valsartan 160 1 tab PO DAILY 02/19/23 mg-hydrochlorothiazide 25 mg tablet fluticasone propionate 50 2 spray intranasal DAILY 09/05 mcg/actuation nasal spray,suspension metformin 500 mg tablet,extended 2,000 mg PO DAILY 09/05 release 24 hr metoprolol succinate 25 mg 12.5 mg PO DAILY 07/22/25 tablet,extended release 24 hr pantoprazole 20 mg tablet,delayed 20 mg PO DAILY 07/22 release Previous Rx's ?Medication ?Instructions ?Recorded phenazopyridine 100 mg tablet 200 mg (2 x 100 mg) PO T ID 6 doses 06/04/22 (Pyridium) #6 tabs tamsulosin 0.4 mg capsule (Flomax) 0.4 mg PO BEDTIME # 10 caps 06/04/22 acetaminophen 500 mg tablet 500 mg PO Q6H PRN fever or pain 12/28/22 (Tylenol Extra Strength) #14 tabs naproxen 500 mg tablet 500 mg PO BID PRN pain 10 da ys #20 12/28/22 tabs prednisone 20 mg tablet 40 mg (2 x 20 mg) PO DAILY 5 days 12/28/22 #10 tabs phenazopyridine 200 mg tablet 200 mg PO TID 3 days #9 tabs 06/27/23 (Pyridium) sulfamethoxazole 800 1 tab PO BID 5 days #10 tabs 06/27/23 mg-trimethoprim 160 mg tablet (Bactrim DS) cefuroxime axetil 250 mg tablet 500 mg (2 x 250 mg) PO BID 7 days 07/08/25 #28 tabs meclizine 25 mg tablet 25 mg PO DAILY PRN dizziness #7 07/08/25 tabs meclizine 12.5 mg tablet 12.5 mg PO TID PRN dizziness #60 07/24/25 tabs Allergies Allergy/AdvReac Type Severity Reaction Status Date / Time iodine Allergy Hives Verified 07/24/25 10:46 lactose Allergy Abdominal Verified 07/24/25 10:46 Pain tramadol Allergy Numbness Verified 07/24/25 10:46 Review of Systems 2 Review of Systems: Constitutional : No Fever, No Chills, No Fatigue ENT/Mouth : No sore throat, No Rhinorrhea Eyes: No Eye Pain, No Swelling, No Redness Cardiovascular : No Chest Pain, No SOB, No Dyspnea on Exertion Respiratory : No Cough, No Sputum Gastrointestinal : No Nausea, No Vomiting, No Diarrhea, No abdominal Pain Genitourinary : No Dysuria, No Urinary Frequency, No Hematuria, Musculoskeletal : No joint pain, No Myalgias, No Joint Swelling Skin : No Skin Lesions, No rash Neuro : No Weakness, No Numbness, pos Dizziness, no Headache All other systems reviewed and are negative [facility] Past Medical History Attestation statement: The following information was validated with the patient. Source: old records reviewed Medical History HTN (hypertension) Hypothyroid Urinary tract infection Social History Social History Alcohol intake: never Patient Tobacco Use Status: Former Tobacco user Smoked in Last 30 Days: No Use of substances other than those prescribed or required for medical reasons: No Advance Directives: No Advance Directives Information Provided: No Do you have a plan to hurt others: No Plan Physical Exam 2 Vital Signs: Vital Signs: Last Vital Signs Temp 98.3 F 07/24/25 10:47 Pulse 95 07/24/25 11:45 Resp 16 07/24/25 10:47 BP 141/74 H 07/24/25 11:45 Pulse Ox 96 07/24/25 10:47 O2 Del Method Room Air 07/24/25 10:47 BMI result Body Mass Index 33.1 Appearance: Alert. Oriented X3. No acute distress. Eyes: Pupils equal, round and reactive to light. ENT: Pharynx normal. healing bruise R eye Neck: Normal inspection. Neck supple. CVS: Normal heart rate and rhythm. Pulses normal. Respiratory: No respiratory distress. Breath sounds normal. Abdomen: Soft and nontender. Skin: Skin warm and dry. Normal skin color. Normal skin turgor. Extremities: No lower extremity edema. No calf ttp Neuro: Oriented X 3. No motor deficit. No sensory deficit. CN2-12 intact Course Course Course Narrative: up and walking using her walker no issues Medical Decision Making Medical Decision Making [facility] Narrative: 80 yo female with PMH of hypothyroidism, chronic back pain, vertigo, HTN, DM, GERD, UTIs not on blood thinners here again with recurrent dizziness when turning the left. No neuro symptoms or dizziness at rest. She has no CP/SOB at this time likely vertigo though she has failed meclizine and CORE therapy x 3. She has no + neuro symptoms but this could be old stroke, vertigo, dehydration, orthostatics, mass, sinus ds Differential Diagnosis Differential Diagnoses: The differential diagnosis associated with the presentation includes vertigo, orthostatics, prior stroke, sinusitis, mass Admission/Observation Consideration of admission/observation: Escalation of care including admission/observation considered no dizziness now neg CT head neg ortho VS does not want rehab stable for DC Lab Data [facility] Lab Attestation statement: I reviewed the patient's lab results. 07/24/25 11:38 07/24/25 11:38 Labs: Lab Results 07/24/25 Range/Units 11:38 WBC 6.7 (4.8-10.8) X10*3/uL RBC 4.26 (4.20-5.50) X10*6/uL Hgb 12.3 (12.0-16.0) g/dl Hct 36.1 L (37.0-47.0) % MCV 84.7 (80.0-98.0) fL MCH 28.9 (27.0-33.0) pg MCHC 34.1 (31.0-35.0) g/dl RDW 14.6 (11.0-16.0) % Plt Count 215 (160-400) X10*3/uL MPV 9.3 L (9.4-12.3) fL Immature Gran % (Auto) 0.3 (0.0-0.4) % Neut % (Auto) 56.6 (45-73) % Lymph % (Auto) 31.4 (20-40) % [place] % (Auto) 9.1 (2-11) % Eos % (Auto) 1.6 (0-4) % Baso % (Auto) 1.0 (0-2) % Lymph # (Auto) 2.1 (1.2-4.9) X10*3/uL [place] # (Auto) 0.6 (0.1-1.2) X10*3/uL Eos # (Auto) 0.1 (0.0-0.4) X10*3/uL Baso # (Auto) 0.1 (0.0-0.2) X10*3/uL Abs Immat Gran (auto) 0.02 (0.00-0.03) X10*3/uL Absolute Neuts (auto) 3.8 (2.0-8.3) x10*3/uL Absolute Nucleated RBC 0.000 (0.0-0.012) X10*3/uL Nucleated RBC % (auto) 0.0 (0.0-0.2) /100WBC Sodium 144 (135-145) mmol/L Potassium 3.6 (3.3-5.1) mmol/L Chloride 108 (96-108) mmol/L Carbon Dioxide 26 (22-29) mmol/L Anion Gap 14 (12-20) BUN 21 H (9-16) mg/dL Creatinine 0.99 (0.5-1.4) mg/dL Estim Creat Clear Calc 53.8 Estimated GFR 54 Random Glucose 131 H (60-115) mg/dL Calcium 9.6 (8.4-10.2) mg/dL Magnesium 1.9 (1.6-2.6) mg/dL Total Bilirubin 0.4 (0.0-1.0) mg/dL Direct Bilirubin 0.1 (0.0-0.5) mg/dL AST 52 H (5-31) U/L ALT 30 (0-31) U/L Alkaline Phosphatase 78 (39-117) U/L Troponin I High Sens < 2.7 (<3.5-17.0) ng/L Total Protein 6.9 (6.5-8.0) g/dL Albumin 4.5 (3.5-5.0) g/dL Independent Interpretation I performed an independent interpretation of an: EKG and CT Scan (neg) Interpretation: Rate: 82 Rhythm: NSR [place]: left Normal P waves. Normal ABDULLAHI. Normal QRS complex. ST T wave : inverted t waves III, no ROLY qTC: 469 prior studies: no acute ischemia The study has been interpreted contemporaneously by me. . Radiology Impression Discussion of test interpretation with radiology: I have reviewed the radiologist's reading. Independent Historian Clinical information obtained from an independent historian. History obtained from or confirmed by: EMS External Record Review External record reviewed: Inpatient record and Outpatient record Prescription Management I considered prescription management with: Other Discharge Plan Discharge Clinical Impression: Benign paroxysmal positional vertigo Qualifiers: Laterality: left Qualified Code(s): H81.12 - Benign paroxysmal vertigo, left ear Patient Disposition: Home, Self-Care Instructions: Vertigo (ED), Benign Paroxysmal Positional Vertigo (ED) Additional Instructions: your blood pressure did not drop with standing CT scan normal no acute findings labs reassuring please continue to follow up with your doctor return for worsening symptoms or concerns you were offered rehab but declined BRAIN: There is diffuse prominence of the ventricular system and cortical sulci, consistent with atrophy. Periventricular and subcortical white matter hypodensities are noted which are nonspecific, but often seen in the setting of small vessel ischemic disease - CHRONIC. There is no mass effect or midline shift. No intra- or extra-axial fluid collections are identified. SINUSES: The visualized paranasal sinuses are clear. The mastoid air cells and middle ear cavities are well pneumatized. ORBITS: The visualized orbits are unremarkable. BONES/SOFT TISSUES: The extracranial soft tissues are unremarkable. The calvarium is intact. No suspicious lytic or sclerotic lesions. CT/CT head/brain wo IV con IMPRESSION: No evidence of intracranial hemorrhage. Prescriptions: New meclizine 12.5 mg tablet 12.5 mg PO TID PRN (Reason: dizziness) Qty: 60 0RF No Action tamsulosin [Flomax] 0.4 mg capsule 0.4 mg PO BEDTIME Qty: 10 0RF phenazopyridine [Pyridium] 100 mg tablet 200 mg PO TID Qty: 6 0RF acetaminophen [Tylenol Extra Strength] 500 mg tablet 500 mg PO Q6H PRN (Reason: fever or pain) Qty: 14 0RF naproxen 500 mg tablet 500 mg PO BID PRN (Reason: pain) 10 Days Qty: 20 0RF prednisone 20 mg tablet 40 mg PO DAILY 5 Days Qty: 10 0RF cefuroxime axetil 250 mg tablet 500 mg PO BID 7 Days Qty: 28 0RF meclizine 25 mg tablet 25 mg PO DAILY PRN (Reason: dizziness) Qty: 7 0RF pantoprazole 20 mg tablet,delayed release (DR/EC) 20 mg PO DAILY metoprolol succinate 25 mg tablet extended release 24 hr 12.5 mg PO DAILY fluticasone propionate 50 mcg/actuation spray,suspension 2 spray intranasal DAILY metformin 500 mg tablet extended release 24 hr 2,000 mg PO DAILY sulfamethoxazole-trimethoprim [Bactrim DS] 800-160 mg tablet 1 tab PO BID 5 Days Qty: 10 0RF phenazopyridine [Pyridium] 200 mg tablet 200 mg PO TID 3 Days Qty: 9 0RF rosuvastatin 40 mg tablet 40 mg PO DAILY levothyroxine 137 mcg tablet 137 mcg PO DAILY valsartan-hydrochlorothiazide 160-25 mg tablet 1 tab PO DAILY gabapentin 300 mg capsule 300 mg PO DAILY omeprazole 20 mg capsule,delayed release(DR/EC) 20 mg PO DAILY estradiol 0.01 % (0.1 mg/gram) cream 1 g vaginal 3XW Print Language: Indian
[2025-07-24 11:40] VITALS: BP 132/63; PULSE 82
[2025-07-24 11:41] LABS: MANUAL DIFF FLAG NO
[2025-07-24 11:42] VITALS: BP 142/69; PULSE 88
[2025-07-24 11:43] LABS: Hematocrit 36.1 % (37.0-47.0); Hemoglobin 12.3 g/dl (12.0-16.0); Imm Gran Abs Auto 0.02 X10*3/uL (0.00-0.03); Imm Gran Pct Auto 0.3 % (0.0-0.4); Lymphocytes Absolute Auto 2.1 X10*3/uL (1.2-4.9); Mean Corpuscular HGB Conc 34.1 g/dl (31.0-35.0); Mean Corpuscular Hemoglobin 28.9 pg (27.0-33.0); Mean Corpuscular Volume 84.7 fL (80.0-98.0); NRBC Abs Auto 0.000 X10*3/uL (0.0-0.012); NRBC Pct Auto 0.0 /100WBC (0.0-0.2); Platelet Count 215 X10*3/uL (160-400); Red Blood Count 4.26 X10*6/uL (4.20-5.50); White Blood Count 6.7 X10*3/uL (4.8-10.8)
[2025-07-24 11:45] VITALS: BP 141/74; PULSE 95
[2025-07-24 12:08] LABS: Alanine Aminotransferase 30 U/L (0-31); Albumin Level 4.5 g/dL (3.5-5.0); Alkaline Phosphatase 78 U/L (39-117); Anion Gap 14 (12-20); Aspartate Amino Transferase 52 U/L (5-31); Blood Urea Nitrogen 21 mg/dL (9-16); Calcium 9.6 mg/dL (8.4-10.2); Carbon Dioxide 26 mmol/L (22-29); Chloride 108 mmol/L (96-108); Creatinine Clr Calc Pharmacy 53.8; Estimated Glomerular Filt Rate 54; Magnesium 1.9 mg/dL (1.6-2.6); Potassium 3.6 mmol/L (3.3-5.1); Sodium 144 mmol/L (135-145); Total Protein 6.9 g/dL (6.5-8.0)
[2025-07-24 12:18] LABS: Troponin-I High Sensitivity < 2.7 ng/L (<3.5-17.0)
--- OUTSIDE RECORDS SUMMARY | 2025-07-24 12:31 | XMS_ITS | Patient Health Record ---
Author Organization [facility] Address [address] [place] [address] Care Team Providers Care Inspector Exhaust Emissions Name Role Phone Speedy Galan MD Primary Care Provider Oseas Wyatt Unavailable [phone] Allergies Allergen (clinical drug ingredient) Drug/Non Drug [...] Status W/U Status Risk Notes Problem Bursitis (68811536) Bursitis (727.3) Active confirmed Problem Achilles bursitis (805395848) Achilles Tendonitis Bursitis (726.71) Active confirmed Problem Calcaneal spur (21243965) Calcaneal spur (726.73) Active confirmed Problem Myositis (89504915) Myositis (729.1) Active confirmed Problem Pain in limb (21589647) Pain in Limb (729.5) Active confirmed Problem Plantar fasciitis (133267080) Plantar Fasciitis (728.71) Active confirmed Plan Of Treatment Pending Test Test Name Order Date X ray : Foot, right 3V 12/31/2012 Insurance Providers Payer Name Payer Address Payer Phone Subscriber Number Group Number Insured Name Patient Relationship to Insured Coverage Start Date Coverage End Date [facility] [address] [place] [address] [phone] [id number] JUSTIN MATTHEWS Self - patient is the insured Medical (General) History Medical History History ICD Code Arthritis back, hip, knee pain high blood pressure scarlet fever thyroid disorder chicken pox polymyalgia rheumatica Surgical History Surgery Date(Month/Year) hernia repair right knee replacement 2010
--- NOTE | 2025-07-24 12:38 | PC.NURSE ---
Patients called wanting update on patient status Patient gave permission to speak with wants to be updated with care Mario Teran [phone]
--- NOTE | 2025-07-24 13:38 | MHC.CM.ED ---
Patient is currently in ER. Received notification from [facility] that patient is active with their agency. Return referral made so they can follow for d/c.
[2025-07-24 14:44] VITALS: BP 141/74; PULSE 95; RESP 16; TEMP 36.7; O2SAT 97
== END 2025-07-24 14:45 | disposition home or self-care (01) ==
PROVIDERS: Emergency Provider Emergency Medicine; PCP Internal Medicine
DX: H81.12 Benign paroxysmal vertigo, left ear (principal); R94.31 Abnormal electrocardiogram [ECG] [EKG]; I10 Essential (primary) hypertension; E11.9 Type 2 diabetes mellitus without complications; R11.0 Nausea; Z79.899 Other long term (current) drug therapy; Z87.891 Personal history of nicotine dependence; Z79.84 Long term (current) use of oral hypoglycemic drugs
CPT/HCPCS: 36415; 70450; 80048; 80076; 83735; 84484; 85025; 93005; 99284; 99285

== ENCOUNTER → 2025-07-24 11:05 | Outpatient (BNV) | payer MEDICARE, SELFPAY | PROVIDERS: Emergency Provider Emergency Medicine; PCP Internal Medicine; Visit Provider Internal Medicine Cardiovascular Disease | DX: R94.31 Abnormal electrocardiogram [ECG] [EKG] (principal); R42 Dizziness and giddiness | CPT/HCPCS: 93010 ==

== ENCOUNTER → 2025-07-24 11:06 | Outpatient (BNV) | payer MEDICARE, SELFPAY | PROVIDERS: Emergency Provider Emergency Medicine; PCP Internal Medicine; Visit Provider Radiology Diagnostic Radiology | DX: R42 Dizziness and giddiness (principal); R26.2 Difficulty in walking, not elsewhere classified | CPT/HCPCS: 70450 ==